=== PATIENT | female | born 1980 | race Caucasian/White ===

== ENCOUNTER 2016-09-06 07:47 | Inpatient (IN) | payer BC ==
[~2016-09-06 07:47] MED LIST: Dexamethasone 4 MG/ML SDV ONE; Lactated Ringers 1,000 ML ONE; Midazolam 1 MG/ML 2 ML SDV ONE; Neostigmine Methylsulfate 1 MG/ML 5 ML Syringe ONE; Ondansetron 4 MG/2 ML SDV ONE; Propofol 200 MG/20 ML SDV ONE; Rocuronium 50 MG/5 ML Vial ONE; Scopolamine 1.5 MG Transdermal Patch ONE; Succinylcholine/Normal Saline 200 MG/10 ML Syringe ONE; fentaNYL 250 MCG/5 ML SDV ONE
[2016-09-06] MEDS ORDERED: Acetaminophen 500 MG Tab PO ONE (08:30)
[2016-09-06] MEDS ORDERED: Scopolamine 1.5 MG Transdermal Patch TRDERM SCH (08:45)
[2016-09-06] MEDS ORDERED: Celecoxib 200 MG Cap PO ONE (08:45)
[2016-09-06] MEDS ORDERED: Gabapentin 300 MG Cap PO ONE (08:45)
[2016-09-06] MEDS ORDERED: cefOXitin 2 GM Vial ONE (08:54)
[2016-09-06] MEDS ORDERED: Dextrose 5%-Lactated Ringers 1,000 ML IV SCH (09:30)
[2016-09-06] MEDS ORDERED: cefOXitin 2 GM in Sodium Chloride 0.9% 50 ML IV ONE (11:00)
[2016-09-06] MEDS ORDERED: [UNRECOGNIZED DRUG - OTHER] NERVRT SCH ×4 (11:00)
[2016-09-06] MEDS ORDERED: DEXAMETHASONE NERVRT SCH ×4 (11:00)
[2016-09-06] MEDS ORDERED: Ketamine 500 MG/5 ML MDV IV SCH (11:00)
[2016-09-06] MEDS ORDERED: ROPIVACAINE NERVRT SCH ×4 (11:00)
[2016-09-06] MEDS ORDERED: EPINEPHRINE NERVRT SCH ×4 (11:00)
[2016-09-06] MEDS ORDERED: Lidocaine 2% 100 MG/5 ML Syringe IVPUSH ONE (11:00)
[2016-09-06] MEDS ORDERED: Rocuronium 50 MG/5 ML Vial ONE (11:57)
[2016-09-06] MEDS ORDERED: Lactated Ringers 1,000 ML ONE (12:03)
--- NOTE | 2016-09-06 14:12 | CR ---
Chest 1V Frontal HISTORY: post line placement COMPARISON: None FINDINGS: Portable chest, 1345 hours There is incomplete inspiration. No acute infiltrate can be identified. Cardiomediastinal silhouette is within normal limits for the AP portable technique. No vascular redistribution or pleural fluid can be seen. Bony structures and soft tissues are unremarkable. Central line has been placed from a left subclavian approach. The tip is satisfactory in the junctio n of the SVC and right atrium. I see no pneumothorax, mediastinal widening, or other complication. IMPRESSION: Satisfactory central line placement. No complication is seen. No other acute chest abnormality ident ified.
[2016-09-06] MEDS ORDERED: hydrOXYzine HCl 50 MG/ML SDV IM PRN (14:47)
[2016-09-06] MEDS ORDERED: SCOPOLAMINE PATCH CHECK TOP SCH (14:47)
[2016-09-06] MEDS ORDERED: SCOPOLAMINE PATCH ASK TOP SCH (14:47)
[2016-09-06] MEDS: HYDROmorphone 1 MG/ML Syringe IVPUSH PRN ×2 (14:49→15:50)
[2016-09-06] MEDS ORDERED: Metoclopramide 10 MG/2 ML SDV IV PRN (14:51)
[2016-09-06] MEDS ORDERED: diphenhydrAMINE 50 MG/ML SDV IV PRN (14:52)
[2016-09-06] MEDS: Acetaminophen Soln 650 MG/20.3 ML UD Cup PO SCH ×2 (15:13→21:17)
[2016-09-06] MEDS: Pantoprazole 40 MG Vial IVPUSH SCH (15:13)
[2016-09-06] MEDS: Gabapentin 250 MG/5 ML Solution ML 470 ML Bottle PO SCH ×2 (15:23→20:36)
[2016-09-06] MEDS: Lidocaine 0.4%/D5W 2 GM/500 ML BAG IV SCH (15:35)
[2016-09-06] MEDS: Labetalol 20 MG/4 ML Syringe IVPUSH PRN ×3 (16:16→18:45)
[2016-09-06] MEDS: MVI, Adult with Vitamin K 10 ML, Thiamine 200 MG, Chromium/Copper/Mang/Selen/Zn 1 ML in... IV SCH ×4 (16:31)
[2016-09-06] MEDS: VERIFY SCOP PATCH TOP SCH (17:22)
[2016-09-06] MEDS: Heparin Sodium 5,000 Units/ML Vial SUBCUT SCH (17:22)
[2016-09-06] MEDS: cefOXitin 2 GM in Sodium Chloride 0.9% 50 ML IV SCH ×2 (17:22→23:58)
[2016-09-06] MEDS ORDERED: Losartan 50 MG Tab PO SCH (21:00)
[2016-09-06] MEDS: Dextrose 5%-Lactated Ringers 1,000 ML IV SCH (22:49)
[2016-09-07] MEDS: HYDROmorphone 1 MG/ML Syringe IVPUSH PRN ×4 (02:13→23:43)
[2016-09-07] MEDS ORDERED: Iohexol 647 MG/ML 50 ML SDV PO STA (03:32)
[2016-09-07] MEDS: Lidocaine 0.4%/D5W 2 GM/500 ML BAG IV SCH (04:19)
[2016-09-07] MEDS: Acetaminophen Soln 650 MG/20.3 ML UD Cup PO SCH ×4 (04:24→21:03)
[2016-09-07] MEDS: cefOXitin 2 GM in Sodium Chloride 0.9% 50 ML IV SCH (05:04)
[2016-09-07] MEDS: Dextrose 5%-Lactated Ringers 1,000 ML IV SCH (05:04)
[2016-09-07] MEDS: Heparin Sodium 5,000 Units/ML Vial SUBCUT SCH ×2 (05:07→17:04)
[2016-09-07] MEDS: VERIFY SCOP PATCH TOP SCH (08:04)
[2016-09-07] MEDS: Celecoxib 200 MG Cap PO SCH (08:08)
[2016-09-07] MEDS: Gabapentin 250 MG/5 ML Solution ML 470 ML Bottle PO SCH ×3 (08:08→21:03)
[2016-09-07] MEDS ORDERED: Losartan 50 MG Tab PO SCH (08:40)
[2016-09-07] MEDS: Metoprolol Tartrate 50 MG Tab PO SCH ×2 (10:28→20:57)
[2016-09-07] MEDS ORDERED: Dextrose 5%-Lactated Ringers 1,000 ML IV SCH (12:00)
[2016-09-07] MEDS: oxyCODONE 5 MG Tab PO PRN ×2 (14:27→19:35)
[2016-09-07] MEDS: MVI, Adult with Vitamin K 10 ML, Thiamine 200 MG, Chromium/Copper/Mang/Selen/Zn 1 ML in... IV SCH ×4 (15:33)
[2016-09-07] MEDS: Pantoprazole 40 MG Vial IVPUSH SCH (15:36)
--- NOTE | 2016-09-07 16:56 | PCM.CONS ---
H&P History of Present Illness - General Date of Service: 09/07/16 Admit Problem/Dx: Admission Diagnosis/Problem Admission Diagnosis/Problem Juvenal-en-Y gastrojejunostomy Source of Information: Patient, Family History Limitations: Reports: No limitations - History of Present Illness Initial Comments - Free Text/Narative: This patient is a 36-year-old woman who I been asked to see by Dr. Hair for further suggestions concerning management of hypertension. She was admitted yesterday by Dr. Hair and underwent Juvenal-en-Y gastric bypass surgery. Since admission has been noted to have significantly elevated systolic and diastolic blood pressures. She's had a previous history of hypertension and is been treated with Cozaar 50 mg by mouth each bedtime. She reports that her pain control has been fairly good and she is otherwise been hemodynamically stable and afebrile. Middle Abdomen Pain Score (Numeric/FACES): 7 - Related Data Allergies/Adverse Reactions: Allergies Allergy/AdvReac Type Severity Reaction Status Date / Time bee venom protein (honey bee) Allergy Severe Swelling Verified 09/06/16 14:54 shrimp Allergy Severe Chest Verified 09/06/16 14:54 Tightness amoxicillin Allergy Rash Verified 09/06/16 09:49 ondansetron Allergy Hives Verified 09/06/16 09:49 [From Zofran (as hydrochloride)] Penicillins Allergy Rash Verified 09/06/16 09:49 trazodone Allergy Lethargy Verified 09/06/16 09:49 prednisone AdvReac Hallucinati Verified 09/06/16 14:55 ons Home Medications: Home Meds Cholecalciferol (Vitamin D3) [Vitamin D3] 2,000 unit PO BID 09/04/16 [History] Cyanocobalamin (Vitamin B12) [Vitamin B12] 100 mcg PO DAILY 09/04/16 [History] Cyanocobalamin/FA/Pyridoxine [B Complex-Folic Acid] 1 each PO DAILY 09/04/16 [ History] DULoxetine [Cymbalta] 30 mg PO BID 09/04/16 [History] Estradiol [Estrace] 0.5 mg PO DAILY 09/04/16 [History] Levothyroxine [Synthroid] 50 mcg PO DAILY 09/04/16 [History] Losartan [Cozaar] 50 mg PO DAILY 09/04/16 [History] Methylphenidate [Ritalin] 20 mg PO BID 09/04/16 [History] Multivitamin with Minerals [Multiple Vitamin] 1 tab PO DAILY 09/04/16 [History] Pramipexole [Mirapex] 0.25 mg PO BID 09/04/16 [History] QUEtiapine [SEROquel] 50 mg PO BEDTIME 09/04/16 [History] Triamcinolone Acetonide [Triamcinolone Acetonide 0.1% Crm] 15 gm TOP BID PRN 10/16 [History] Venlafaxine [Effexor] 37.5 mg PO DAILY 09/04/16 [History] traMADol [Ultram] 50 mg PO Q6H PRN 09/04/16 [History] Past Medical History Cardiovascular History: Reports: Hypertension, Other (see below) Other Cardiovascular History: pericarditis Gastrointestinal History: Reports: Other (see below) Other Gastrointestinal History: biliary dyskinesia Genitourinary History: Reports: Other (see below) Other Genitourinary History: kidney failure at 18 months old [employer] History: Reports: Dysfunctional uterine bleeding, Endometriosis, Musculoskeletal History: Reports: Back pain, chronic, Fracture, Other (see below ) Other Musculoskeletal History: left foot fx Neurological History: Reports: Concussion, Migraines Psychiatric History: Reports: Anxiety, Depression, PTSD Endocrine/Metabolic History: Reports: Hypothyroidism Hematologic History: Reports: Other (see below) Other Hematologic History: d3 def. Dermatologic History: Reports: Psoriasis - Infectious Disease History Infectious Disease History: Reports: Chicken pox - Past Surgical History HEENT Surgical History: Reports: Tonsillectomy Cardiovascular Surgical History: Reports: None GI Surgical History: Reports: Cholecystectomy, EGD Female Surgical History: Reports: Breast biopsy, Hysterectomy Other Female Surgeries/Procedures: left breast Endocrine Surgical History: Reports: None Neurological Surgical History: Reports: None Musculoskeletal Surgical History: Reports: None Dermatological Surgical History: Reports: None Social & Family History - Tobacco Use Smoking Status *Q: Former Smoker Years of Tobacco use: 15 Packs/Tins Daily: 0.5 Used Tobacco, but Quit: Yes Month Tobacco Last Used: jun Second Hand Smoke Exposure: No - Caffeine Use Caffeine Use: Reports: None - Recreational Drug Use Recreational Drug Use: No H&P Review of Systems - Review of Systems: Review Of Systems: See Below General: Reports: no symptoms HEENT: Reports: no symptoms Pulmonary: Reports: No Symptoms Cardiovascular: Reports: no symptoms Gastrointestinal: Reports: Abdominal pain. Denies: Distension, Nausea, Vomiting Musculoskeletal: Reports: no symptoms Exam - Exam Exam: See Below - Vital Signs Vital Signs: Last Vital Signs Temp 98.1 F 09/07/16 13:37 Pulse 62 09/07/16 13:37 Resp 18 09/07/16 13:37 BP 157/85 H 09/07/16 13:37 Pulse Ox 93 L 09/07/16 13:37 Weight: 272 lb 5 oz - Exam General: alert, oriented, cooperative Neck: supple, trachea midline, +2 carotid pulse wo bruit Lungs: Clear to auscultation, Normal respiratory effort Cardiovascular: regular rate, regular rhythm, normal S1, normal S2. No: systolic murmur, diastolic murmur Abdomen: soft, tenderness, hypoactive bowel sounds. No: distention Extremities: 3, normal inspection, 10 Consult PN Assessment/Plan Procedures: Procedures BLOOD TYPING SEROLOGIC ABO (02/15/16) BLOOD TYPING SEROLOGIC RH(D) (02/15/16) RBC ANTIBODY SCREEN (02/15/16) Problem List Initiated/Reviewed/Updated: Yes My Orders last 24 hours: My Active Orders 09/07/16 08:40 Losartan [Cozaar] 100 mg PO BEDTIME 09/07/16 09:00 Metoprolol Tartrate [Lopressor] 50 mg PO BID Plan: ASSESSMENT AND RECOMMENDATIONS STATUS POST JUVENAL-EN-Y GASTRIC BYPASS SURGERY -Postop care as per Dr. Hair UNCONTROLLED HYPERTENSION-previous history, currently treated with Cozaar 50 mg by mouth each bedtime. Blood pressures been consistently elevated since admission. -Increase Cozaar to 100 mg by mouth each bedtime -Metoprolol 50 mg by mouth twice a day -Continue to monitor blood pressure, will followup in the a.m. Requesting Provider: EDDI Date Consult Requested: 09/07/16 Reason for Consult: Management of hypertension Patient History Reviewed: Yes
[2016-09-08] MEDS: Acetaminophen Soln 650 MG/20.3 ML UD Cup PO SCH ×2 (03:31→09:30)
[2016-09-08] MEDS: oxyCODONE 5 MG Tab PO PRN (03:36)
[2016-09-08] MEDS: Heparin Sodium 5,000 Units/ML Vial SUBCUT SCH (05:27)
[2016-09-08 07:25] VITALS: BP 148/83
[2016-09-08] MEDS ORDERED: HYDROmorphone 2 MG Tab PO PRN (07:53)
[2016-09-08] MEDS ORDERED: Gabapentin 300 MG Cap PO SCH (09:00)
[2016-09-08] MEDS ORDERED: Cyanocobalamin (Vitamin B12) 1,000 MCG/ML SDV IM ONE (09:00)
[2016-09-08] MEDS: Metoprolol Tartrate 50 MG Tab PO SCH (09:00)
[2016-09-08] MEDS: Celecoxib 200 MG Cap PO SCH (09:01)
--- NOTE | 2016-09-08 11:15 | PCM.CONSN ---
- General Info Date of Service: 09/08/16 Functional Status: Reports: tolerating diet, ambulating, urinating - Review of Systems General: Reports: Weakness Pulmonary: Reports: no symptoms Cardiovascular: Reports: No Symptoms Gastrointestinal: Reports: Abdominal pain Systems Review Comment:: This patient is a 36-year-old woman who I was asked yesterday by Dr. Hair for recommendations concerning management of hypertension.her dose of Cozaar was increased to 100 mg by mouth each bedtime and she was started on metoprolol 50 mg twice daily. With these interventions blood pressures come under better control but is not yet within the desired range. - Patient Data Vitals - most recent: Last Vital Signs Temp 96.2 F 09/08/16 07:22 Pulse 79 09/08/16 09:00 Resp 12 09/08/16 07:22 BP 148/83 H 09/08/16 09:00 Pulse Ox 95 09/08/16 07:22 Weight - most recent: 272 lb 5 oz I&O - last 24 hours: Intake & Output 09/07/16 09/08/16 09/08/16 22:59 06:59 14:59 Intake Total 7121 844 9172 Output Total 1045 1870 1000 Balance 823 -1650 665 Med Orders - Current: Current Medications Acetaminophen (Tylenol) 650 mg PO Q6H [facility] Last Admin: 09/08/16 09:30 Dose: 650 mg Celecoxib (Celebrex) 200 mg PO DAILY [facility] Last Admin: 09/08/16 09:01 Dose: 200 mg Gabapentin (Neurontin) 300 mg PO TID [facility] Last Admin: 09/08/16 09:07 Dose: 300 mg Heparin Sodium (Porcine) (Heparin Lock Flush 100 Units/Ml Syringe) 500 units FLUSH ASDIRECTED PRN PRN Reason: Other Last Admin: 09/08/16 08:05 Dose: 500 units Heparin Sodium (Porcine) (Heparin Sodium) 5,000 units SUBCUT Q12H [facility] Last Admin: 09/08/16 05:27 Dose: 5,000 units Hydromorphone HCl (Dilaudid) 2 - 4 mg PO Q4H PRN PRN Reason: PAIN Last Admin: 09/08/16 08:06 Dose: 4 mg Hydroxyzine HCl (Vistaril) 75 - 100 mg IM Q4H PRN PRN Reason: PAIN NOT CONTROLLED BY [employer]ONSTR[employer] Last Admin: 09/06/16 14:56 Dose: 100 mg Losartan Potassium (Cozaar) 100 mg PO BEDTIME [facility] Last Admin: 09/07/16 20:56 Dose: 100 mg Metoprolol Tartrate (Lopressor) 50 mg PO BID [facility] Last Admin: 09/08/16 09:00 Dose: 50 mg Discontinued Medications Acetaminophen (Tylenol Extra Strength) 1,000 mg PO ONETIME ONE Stop: 09/06/16 08:31 Last Admin: 09/06/16 08:45 Dose: 1,000 mg Cefoxitin Sodium (Mefoxin) Confirm Administered Dose 2 gm .ROUTE .STK-MED ONE Stop: 09/06/16 08:55 Last Admin: 09/06/16 12:48 Dose: 2 gm Celecoxib (Celebrex) 200 mg PO ONETIME ONE Stop: 09/06/16 08:46 Last Admin: 09/06/16 08:45 Dose: 200 mg Ropivacaine 59.5 ml/Dexamethasone 8 mg/Epinephrine HCl 0.4 mg/ Sodium Chloride 18.1 ml 0 ml NERVRT ASDIRECTED [facility] Last Admin: 09/06/16 11:55 Dose: 80 syringe Cyanocobalamin (Vitamin B12) 1,000 mcg IM ONETIME ONE Stop: 09/08/16 09:01 Last Admin: 09/08/16 09:01 Dose: 1,000 mcg Dexamethasone (Dexamethasone) Confirm Administered Dose 4 mg .ROUTE .STK-MED ONE Stop: 09/06/16 07:40 Diphenhydramine HCl (Benadryl) 25 - 50 mg IV Q4H PRN PRN Reason: ITCHING Fentanyl (Sublimaze) Confirm Administered Dose 500 mcg .ROUTE .STK-MED ONE Stop: 09/06/16 07:40 Gabapentin (Neurontin) 300 mg PO ONETIME ONE Stop: 09/06/16 08:46 Last Admin: 09/06/16 08:45 Dose: 300 mg Gabapentin (Neurontin) 300 mg PO TID [facility] Last Admin: 09/07/16 21:03 Dose: 300 mg Glycopyrrolate () Confirm Administered Dose 1 mg .ROUTE .STK-MED ONE Stop: 09/06/16 07:40 Heparin Sodium (Porcine) (Heparin Lock Flush 100 Units/Ml Syringe) Confirm Administered Dose 1,000 units .ROUTE .STK-MED ONE Stop: 09/06/16 10:11 Hydromorphone HCl (Dilaudid) 1 mg IVPUSH Q1H PRN PRN Reason: Pain Last Admin: 09/07/16 23:43 Dose: 1 mg Dextrose/Lactated Ringer's (Dextrose 5%-Lactated Ringers) 1,000 mls @ 100 mls/ [facility] Last Admin: 09/06/16 09:30 Dose: 100 mls/hr Cefoxitin Sodium 2 gm/ Sodium (Chloride) 50 mls @ 100 mls/hr IV ONETIME ONE Stop: 09/06/16 11:29 Last Admin: 09/06/16 11:45 Dose: 100 mls/hr Lidocaine HCl/Dextrose (Lidocaine 2 Gm/D5w 500 Ml) 2 gm in 500 mls @ 30 mls/hr IV .[id number] [facility] PRN Reason: 2 MG/MIN Stop: 09/07/16 14:00 Last Admin: 09/07/16 04:19 Dose: 2 mg/min, 30 mls/hr Ketamine HCl 100 mg/ Sodium (Chloride) 100 mls @ 18 [facility] Lactated Ringer's (Ringers, Lactated) Confirm Administered Dose 1,000 mls @ as directed .ROUTE .STK-MED ONE Stop: 09/06/16 07:40 Lactated Ringer's (Ringers, Lactated) Confirm Administered Dose 1,000 mls @ as directed .ROUTE .STK-MED ONE Stop: 09/06/16 12:04 Dextrose/Lactated Ringer's (Dextrose 5%-Lactated Ringers) 1,000 mls @ 175 [facility]ls/ [facility] Stop: 09/07/16 11:59 Last Admin: 09/07/16 05:04 Dose: 175 mls/hr Multivitamins/Minerals 10 ml/Thiamine HCl 200 mg/ Chromium/Copper/Manganese/ Seleni/Zn 1 ml/ Dextrose/Lactated Ringer's 1,013 mls @ 100 mls/hr IV DAILY@ 1600 DANICA Last Admin: 09/07/16 15:33 Dose: 100 mls/hr Cefoxitin Sodium 2 gm/ Sodium (Chloride) 50 mls @ 100 mls/hr IV Q6H [facility] Stop: 09/07/16 06:29 Last Admin: 09/07/16 05:04 Dose: 100 mls/hr Dextrose/Lactated Ringer's (Dextrose 5%-Lactated Ringers) 1,000 mls @ 100 mls/ hr IV ASDIRECTED [facility] Last Admin: 09/08/16 01:40 Dose: 100 mls/hr Iohexol (Omnipaque-300) 50 ml PO . DIRECTED STA Stop: 09/07/16 03:33 Last Admin: 09/07/16 03:52 Dose: 50 ml Ketamine HCl (Ketalar) 30 mg IV ASDIRECTED [facility] Labetalol HCl (Normodyne) 5 - 15 mg IVPUSH Q1H PRN PRN Reason: SBP over 160 OR DBP over 95 Last Admin: 09/06/16 18:45 Dose: 15 mg Lidocaine HCl (Xylocaine 2%) 128 mg IVPUSH ONETIME ONE Stop: 09/06/16 11:01 Last Admin: 09/06/16 16:01 Dose: Not Given Losartan Potassium (Cozaar) 50 mg PO BEDTIME [facility] Last Admin: 09/06/16 20:36 Dose: 50 mg Metoclopramide HCl (Reglan) 10 mg IV Q6H PRN PRN Reason: N/V Midazolam HCl (Versed 1 Mg/Ml) Confirm Administered Dose 2 mg .ROUTE .STK-MED ONE Stop: 09/06/16 07:40 Neostigmine Methylsulfate (Neostigmine) Confirm Administered Dose 5 mg .ROUTE .STK-MED ONE Stop: 09/06/16 07:40 Scopolamine Patch (Check) 1 each TOP DAILY [facility] Last Admin: 09/07/16 10:29 Dose: Not Given Verify Scop Patch 0 each TOP DAILY [facility] Last Admin: 09/07/16 08:04 Dose: Not Given Ondansetron HCl (Zofran) Confirm Administered Dose 4 mg .ROUTE .STK-MED ONE Stop: 09/06/16 07:40 Oxycodone HCl (Oxycodone) 5 - 10 mg PO Q4H PRN PRN Reason: Pain Last Admin: 09/08/16 03:36 Dose: 10 mg Pantoprazole Sodium (Protonix Iv) 40 mg IVPUSH Q24H [facility] Last Admin: 09/07/16 15:36 Dose: 40 mg Propofol (Diprivan 20 Ml) Confirm Administered Dose 200 mg .ROUTE .STK-MED ONE Stop: 09/06/16 07:40 Rocuronium Gaastra (Zemuron) Confirm Administered Dose 100 mg .ROUTE .STK-MED ONE Stop: 09/06/16 07:40 Rocuronium Gaastra (Zemuron) Confirm Administered Dose 50 mg .ROUTE .STK-MED ONE Stop: 09/06/16 11:58 Scopolamine (Transderm-Scop) 1.5 mg TRDERM Q72H [facility] Stop: 09/09/16 03:00 Last Admin: 09/06/16 08:45 Dose: 1.5 mg Scopolamine (Transderm-Scop) Confirm Administered Dose 1.5 mg .ROUTE .STK-MED ONE Stop: 09/06/16 07:40 Scopolamine (Transderm-Scop) 1.5 mg TOP ASDIRECTED [facility] Stop: 09/09/16 16:00 Sodium Chloride (Normal Saline) 500 ml IRR .STK-MED ONE Stop: 09/06/16 12:50 Last Admin: 09/06/16 12:49 Dose: 500 ml Succinylcholine Chloride (Succinylcholine In Ns Pf) Confirm Administered Dose 200 mg .ROUTE .STK-MED ONE Stop: 09/06/16 07:40 - Exam Lungs: Clear to auscultation, Normal respiratory effort Cardiovascular: Regular Rate, Regular Rhythm, No Murmurs Consult PN Assessment/Plan Procedures: Procedures BLOOD TYPING SEROLOGIC ABO (02/15/16) BLOOD TYPING SEROLOGIC RH(D) (02/15/16) RBC ANTIBODY SCREEN (02/15/16) Problem List Initiated/Reviewed/Updated: Yes Plan: ASSESSMENT AND RECOMMENDATIONS STATUS POST TOMMY-EN-Y GASTRIC BYPASS SURGERY -Postop care as per Dr. Hair UNCONTROLLED HYPERTENSION-blood pressure improved with changes in medication, not yet within the desired range. -Increase Cozaar to 100 mg by mouth each bedtime -Metoprolol 50 mg by mouth twice a day -schedule followup appointment with primary care provider for further fine- tuning of blood pressure control.
--- NOTE | 2016-09-09 08:05 | PN ---
DATE OF SERVICE: 09/07/2016 The patient has been afebrile. She has been quite hypertensive. We will get a consultation with Dr. Royal today regarding the hypertension. The patient is normally on Cozaar, and it was started last night. I suspect she will need some additional antihypertensive agent. Otherwise, she is doing well with only requiring one dose of Dilaudid postoperatively. She is up and moving well, and upper GI looks good. Oral intake overnight was around 350 mL. We will order a step-2 diet today and otherwise maximize activity and work with pulmonary toilet. Rob Hair MD /[id number]
--- NOTE | 2016-09-09 10:01 | CR ---
UGI wo KUB HISTORY: Post RNY GBP. FINDINGS: After administration of oral contrast, upright views were obtained. Post operative changes gastric bypass. Surgical drains in place. No evidence for leak. Contrast passes freely into proxima l small bowel loops. IMPRESSION: No evidence for leak or obstruction.
--- NOTE | 2016-09-09 15:37 | OR ---
DATE OF PROCEDURE: 09/06/2016 PREOPERATIVE DIAGNOSES: 1. Morbid obesity. 2. Limited peripheral venous access. POSTOPERATIVE DIAGNOSES: 1. Limited peripheral venous access. 2. Morbid obesity. 3. Marked hepatomegaly. 4. Paraesophageal diaphragmatic hernia. OPERATIVE PROCEDURES: 1. Insertion of left subclavian vein triple-lumen catheter (27527). 2. Diagnostic laparoscopy with:. a. Laparoscopic Juvenal-en-Y gastric bypass along long limb gastroenterostomy (43463). b. Glen-Cut needle liver biopsy (95723). 3. Repair of paraesophageal diaphragmatic hernia (81986). ANESTHESIA: General. MEDICAL STAFF SERVICES MANAGER: Nina Juan PA-C. INDICATIONS FOR PROCEDURE: This is a 36-year-old presenting with longstanding morbid obesity and increasingly significant comorbidities. After preoperative evaluation and discussion, she wished to proceed with a gastric bypass procedure. Potential risks of the procedure including bleeding, infection, leaks from various GI tract closures, problems with bowel obstruction over time as well as possibility of cardiopulmonary, septic, or hemorrhagic complications leading to were all discussed, and the patient wishes to proceed. Additionally, the patient noted to have very limited peripheral venous access and after discussion with the patient as well as Anesthesia staff the decision was made to place a central line for maintenance of IV access in the preoperative period. Potential risks of that including bleeding, pneumohemothorax, injury to vasculature were likewise reviewed, and the patient wishes to proceed. DETAILS OF PROCEDURE: The patient was taken to the operating room and after general endotracheal anesthesia was induced was placed in a lithotomy position. Zaldivar catheter along the gastrostomy balloon catheter were placed. At this point, bilateral subcostal transverse abdominis plane blocks were placed and at that point the abdomen was then prepped and draped. At 15 cm inferior, 5 cm left of xiphoid process, transverse incision was made and the peritoneal cavity entered under direct vision with an Optiview trocar and inflated to 15 mmHg pressure with CO2. Laparoscope was then reinserted. No underlying trocar insertion site injuries were seen. Following this, 5 additional trocars were placed across the upper mid abdomen and general exploration was undertaken. The patient was noted to have marked hepatomegaly with liver volume being roughly 2 to 3 times normal liver, grossly fatty infiltrated. Glen-Cut needle biopsies were obtained from left lobe of the liver. Minimal bleeding from the biopsy sites was controlled with electrocautery. At this point, the omentum was divided in the midline up to level of the transverse colon. This allowed identification of the small bowel to the ligament of Treitz. Small bowel was then traced out 200 cm distal to that point, was divided transversely with a DEAN stapler. Small bowel was then traced out additional 150 cm where the [id number] enteroenterostomy was accomplished with an internal firing of the Endo-DEAN 60 mm stapler, common opening was then closed transversely with same stapler. The angles of anastomosis and mesenteric defect were approximated with some 0 Ethibond sutures reinforced with fibrin sealant. Juvenal limb was then mobilized anteriorly over the colon and stomach up to the level of the gastroesophageal junction without tension. The liver was then retracted anteriorly. The patient was noted to have a fairly large paraesophageal diaphragmatic hernia. This included prolapse of portion of gastric fundus, perigastric fat, and omentum into the plane anterior to the course of the esophagus. The diaphragmatic hernia was reduced with peritoneum overlying it, incised and reflected downward. An anterior repair of the diaphragmatic hernia was accomplished with some 0 Ethibond sutures reinforced with PTFE pledgets. At this point, the gastrointestinal catheter was inflated to 15 mL and pulled up snugly against EG junction, gastric wall over the apex balloon was then marked with electrocautery, and balloon catheter deflated and pulled up from the esophagus. The rest of the omental tissue adjacent to the gastric cardia was incised allowing dissection of the stomach at that level. Pouch formation was then initiated with a transverse firing of the gastric pouch to the level was cauterized by the gastric pouch. Pouch was then completed with some additional firings of DEAN michele up to and through the angle of His. Upon completion of the pouch, both staple lines were noted to be intact. The anvil of a 25 mm EEA stapler was attached to a [place] sump type tube, that was brought down through the mouth and taken out through a small opening in the gastric pouch, allowing the anvil likewise to be placed within the gastric pouch. The end of the Juvenal limb was then opened and main body of the EEA stapler passed several cm into the Juvenal limb, brought up the anvil and united with it, thus creating the gastrojejunostomy. On removal of stapler, the donuts of the mucosa were noted within the small bowel was closed off with a vascular staple line. Gastrojejunostomy was reinforced with some 3-0 Vicryl seromuscular stitch along with fibrin sealant. Leak test was accomplished with injection of 120 mL of air in the gastric pouch while submerged with cefoxitin-containing saline solution. No leaks were identified. One Rob-Jones drain was placed adjacent to the gastrojejunostomy and taken out at the left subcostal trocar site. There were no further problems. At this point, the trocars were removed and peritoneal cavity deflated. The incision closed with some 4-0 Vicryl skin stitch. Prior to initiation of gastric bypass due to the patient's limited peripheral venous access, left subclavian vein triple-lumen catheter was placed at the upper chest and neck areas were prepped and draped. The left subclavian vein was cannulated, guidewire passed over the guidewire, a triple-lumen catheter positioned. Good in and outflow was confirmed and both ports were flushed with heparinized saline. Catheter was sutured to skin with some 3-0 silk stitch. Dressing applied. At the conclusion of the procedure a chest x-ray was obtained which showed good catheter positioning without complications. Physician pharmacy sales assistant, Nina Juan, played an essential role in assisting in this case, helping to position the patient, retract structures as needed, as well as suturing and cutting sutures when indicated. Her presence improved patient's safety and decreased operative time. Rob Hair MD /[id number]
--- NOTE | 2016-09-10 08:52 | DISCH ---
FINAL DIAGNOSES: 1. Morbid obesity. 2. Marked hepatomegaly. 3. Paraesophageal diaphragmatic hernia. 4. Limited peripheral venous access. 5. Treated hypoparathyroidism. 6. Anxiety and dysthymia. 7. History of hypertension. 8. Status post DEONTE-BSO with surgical menopause. OPERATIVE PROCEDURE: This was done on 09/06/2016, laparoscopic Juvenal-en-Y gastric bypass with long limb gastroenterostomy with liver biopsy, repair of paraesophageal diaphragmatic hernia and insertion of left subclavian vein triple-lumen catheter. HOSPITAL COURSE: This is a 36-year-old female presenting with longstanding morbid obesity and increasingly significant comorbidities. After preoperative evaluation and discussion, she wished to proceed with gastric bypass. This was done on the date of procedure, along with liver biopsy and repair of a concurrent diaphragmatic hernia. The patient had very limited peripheral venous access, so a central line was placed after induction of the anesthetic and will be removed at the time of discharge. Postoperatively, the patient has required some narcotics, in addition to the Celebrex, gabapentin, and Tylenol schedule, and will be discharged with Tylenol 650 mg p.o. q.6 hours x5 days, then p.r.n., and Celebrex 200 mg daily x14 days, and Dilaudid 2 to 4 mg p.o. q.4 hours p.r.n. pain, #40. Additionally, the patient was noted to be quite hypertensive persistently perioperatively. Internal Medicine consultation was obtained and her Cozaar dose was increased from 50 to 100 mg a day and then metoprolol 50 mg p.o. b.i.d. was also started. Otherwise, she will be continuing her usual at-home medications with instructions to split most of these as directed and being given. Follow up will be with CHILO Lopez, [facility] on 09/16/2016 at 11:00 a.m.
== END 2016-09-08 11:45 | disposition home or self-care (01) | DRG 403 ==
LOC: JP.SDS 08:17 → JP.MS 08:17 → EDSTATUS 10:15 → JP.2SS 14:20
PROVIDERS: ADMIT Surgery; ATTEND Surgery
PROC: 0BQR4ZZ (ICD-10-PCS; principal; 2016-09-06)
PROC: 02HV33Z Insertion of Infusion Device into Superior Vena Cava, Percutaneous Approach (ICD-10-PCS; principal; 2016-09-06)
PROC: 0FB24ZX Excision of Left Lobe Liver, Percutaneous Endoscopic Approach, Diagnostic (ICD-10-PCS; principal; 2016-09-06)
PROC: 0D164ZA Bypass Stomach to Jejunum, Percutaneous Endoscopic Approach (ICD-10-PCS; principal; 2016-09-06)
PROC: 0BQS4ZZ (ICD-10-PCS; principal; 2016-09-06)
DX: E66.01 Morbid (severe) obesity due to excess calories (principal); Z68.41 Body mass index [BMI] 40.0-44.9, adult; R16.0 Hepatomegaly, not elsewhere classified; K44.9 Diaphragmatic hernia without obstruction or gangrene; I10 Essential (primary) hypertension; E03.9 Hypothyroidism, unspecified; F42.9 Obsessive-compulsive disorder, unspecified; F41.9 Anxiety disorder, unspecified; M54.9 Dorsalgia, unspecified; G89.29 Other chronic pain; Z87.891 Personal history of nicotine dependence; Z91.030 Bee allergy status; Z91.040 Latex allergy status; Z91.018 Allergy to other foods; Z88.0 Allergy status to penicillin; Z91.013 Allergy to seafood; Z88.8 Allergy status to other drugs, medicaments and biological substances
CPT/HCPCS: 36415; 71010; 71010-26; 74240; 74240-26; 82962; 86850; 86900; 86901; 88307; 88313; A9270-GY; C9113; J0171; J0694; J1100; J1170; J1642; J1644; J2001; J2250; J2405; J2704; J2795; J3010; J3410; J3411; J3420; J7030; J7040; J7042; J7050; J7120; Q9967

== ENCOUNTER 2016-09-11 18:05 | Inpatient (IN) | payer BC ==
[2016-09-11] MEDS ORDERED: Ondansetron 4 MG/2 ML SDV IVPUSH ONE (20:15)
[2016-09-11] MEDS ORDERED: Sodium Chloride 0.9% 1,000 ML IV SCH (20:15)
[2016-09-11] MEDS ORDERED: HYDROmorphone 1 MG/ML Syringe IVPUSH ONE ×3 (20:16→23:22)
[2016-09-11] MEDS ORDERED: Sodium Chloride 0.9% 10 ML Syringe FLUSH PRN (21:46)
[2016-09-11] MEDS ORDERED: Iopamidol 612 MG/ML 150 ML Bottle IV SCH (22:00)
--- NOTE | 2016-09-11 23:41 | EDM.PDOC ---
ED HPI GI/ABDOMINAL - General Chief Complaint: Abdominal Pain Stated Complaint: STOMACH PAIN/VOMITING Time Seen by Provider: 09/11/16 18:10 Source: Reports: Patient History Limitations: Reports: No limitations - History of Present Illness INITIAL COMMENTS - FREE TEXT/NARRATIVE: History of present illness: [36-year-old female who underwent Juvenal-en-Y gastric bypass last Friday presenting now with 24-hour history of epigastric abdominal pain nausea and vomiting. No fever. No other complaints] Review of systems: As per history of present illness and below otherwise all systems reviewed and negative. Past medical history: As per history of present illness and as reviewed below otherwise noncontributory. Surgical history: As per history of present illness and as reviewed below otherwise noncontributory. Social history: No reported history of drug or alcohol abuse. Family history: As per history of present illness and as reviewed below otherwise noncontributory. Physical exam: HEENT: Atraumatic, normocephalic, pupils reactive, negative for conjunctival pallor or scleral icterus, mucous membranes moist, throat clear, neck supple, nontender, trachea midline. Lungs: Clear to auscultation Heart: S1S2, regular Abdomen: She has tenderness to palpation in the epigastric area and there is some distention present Extremities: Atraumatic, negative for cords or calf pain. Neurovascular unremarkable. Neuro: Awake, alert, oriented.Exam nonfocal. Diagnostics: [CBC complete metabolic panel were obtained along with abdominal pelvic CT the CT is demonstrating evidence for small bowel obstruction of the Juvenal-en-Y loop] Therapeutics: [] Impression: [Small bowel obstruction of the Juvenal-en-Y loop] Plan: [I spoke with Dr. Peter Hair and the patient will be admitted. She will be provided with IV fluids and a AMBULANCE MECHANIC pump and he will assess her in the morning.] Definitive disposition and diagnosis as appropriate pending reevaluation and review of above. - Related Data Allergies/ADRs: Allergies Allergy/AdvReac Type Severity Reaction Status Date / Time bee venom protein (honey bee) Allergy Severe Swelling Verified 09/11/16 19:50 shrimp Allergy Severe Chest Verified 09/11/16 19:50 Tightness amoxicillin Allergy Rash Verified 09/11/16 19:50 ondansetron Allergy Hives Verified 09/11/16 19:50 [From Zofran (as hydrochloride)] Penicillins Allergy Rash Verified 09/11/16 19:50 trazodone Allergy Lethargy Verified 09/11/16 19:50 prednisone AdvReac Hallucinati Verified 09/11/16 19:50 ons Home Meds: Home Meds Cholecalciferol (Vitamin D3) [Vitamin D3] 2,000 unit PO BID 09/04/16 [History] Cyanocobalamin (Vitamin B12) [Vitamin B12] 100 mcg PO DAILY 09/04/16 [History] Cyanocobalamin/FA/Pyridoxine [B Complex-Folic Acid] 1 each PO DAILY 09/04/16 [ History] DULoxetine [Cymbalta] 30 mg PO BID 09/04/16 [History] Estradiol [Estrace] 0.5 mg PO DAILY 09/04/16 [History] Levothyroxine [Synthroid] 50 mcg PO DAILY 09/04/16 [History] Methylphenidate [Ritalin] 20 mg PO BID 09/04/16 [History] Multivitamin with Minerals [Multiple Vitamin] 1 tab PO DAILY 09/04/16 [History] Pramipexole [Mirapex] 0.25 mg PO BID 09/04/16 [History] QUEtiapine [SEROquel] 50 mg PO BEDTIME 09/04/16 [History] Triamcinolone Acetonide [Triamcinolone Acetonide 0.1% Crm] 15 gm TOP BID PRN 10/16 [History] Venlafaxine [Effexor] 37.5 mg PO DAILY 09/04/16 [History] traMADol [Ultram] 50 mg PO Q6H PRN 09/04/16 [History] Losartan [Cozaar] 100 mg PO DAILY #30 tablet 09/08/16 [Rx] Metoprolol Tartrate [Lopressor] 50 mg PO BID #60 tablet 09/08/16 [Rx] Past Medical History Cardiovascular History: Reports: Hypertension, Other (see below) Other Cardiovascular History: pericarditis Gastrointestinal History: Reports: Other (see below) Other Gastrointestinal History: biliary dyskinesia Genitourinary History: Reports: Other (see below) Other Genitourinary History: kidney failure at 18 months old 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 Dermatologic History: Reports: Psoriasis - Infectious Disease History Infectious Disease History: Reports: C-difficile - Past Surgical History HEENT Surgical History: Reports: Tonsillectomy Cardiovascular Surgical History: Reports: None GI Surgical History: Reports: Bariatric procedure, Cholecystectomy, EGD Female Surgical History: Reports: Breast biopsy, Hysterectomy Other Female Surgeries/Procedures: left breast Endocrine Surgical History: Reports: None Neurological Surgical History: Reports: None Musculoskeletal Surgical History: Reports: None Dermatological Surgical History: Reports: None Social & Family History - Tobacco Use Smoking Status *Q: Never Smoker Years of Tobacco use: 15 Packs/Tins Daily: 0.5 Used Tobacco, but Quit: Yes Month Tobacco Last Used: jun Second Hand Smoke Exposure: No - Caffeine Use Caffeine Use: Reports: None - Recreational Drug Use Recreational Drug Use: No ED ROS GENERAL - Review of Systems Review Of Systems: ROS reveals no pertinent complaints other than HPI. ED EXAM, GI/ABD - Physical Exam Exam: See Below Course - Vital Signs Last Recorded V/S: Last Vital Signs Temp 37.7 C 09/11/16 19:49 Pulse 89 09/11/16 19:49 Resp 20 09/11/16 19:49 BP 157/38 H 09/11/16 19:49 Pulse Ox 100 09/11/16 19:49 - Orders/Labs/Meds Orders: Active Orders 24 hr Category Date Time Status Abdomen Pelvis w Cont [CT] Stat Exams 09/11/16 21:36 Taken Iopamidol [Isovue-300 (61%)] Med 09/11/16 22:00 Active 150 ml IV . DIRECTED Sodium Chloride 0.9% [Normal Saline] 1,000 ml Med 09/11/16 20:15 Active IV ASDIRECTED Sodium Chloride 0.9% [Saline Flush] Med 09/11/16 21:46 Active 10 ml FLUSH ONETIME PRN Medication Orders Sodium Chloride (Normal Saline) 1,000 mls @ 250 mls/hr IV ASDIRECTED DANICA Last Admin: 09/11/16 20:28 Dose: 250 mls/hr Iopamidol (Isovue-300 (61%)) 150 ml IV . DIRECTED DANICA Last Admin: 09/11/16 22:22 Dose: 150 ml Sodium Chloride (Saline Flush) 10 ml FLUSH ONETIME PRN PRN Reason: PER RADIOLOGY PROTOCOL Last Admin: 09/11/16 22:22 Dose: 10 ml Labs: Laboratory Tests 09/11/16 09/11/16 Range/Units 20:14 20:14 WBC 11.0 (4.5-11.0) K/uL RBC 5.02 (3.30-5.50) M/uL Hgb 15.0 (12.0-15.0) g/dL Hct 42.5 (36.0-48.0) % MCV 85 (80-98) fL MCH 30 (27-31) pg MCHC 35 (32-36) % Plt Count 286 (150-400) K/uL Neut % (Auto) 77 H (36-66) % Lymph % (Auto) 11 L (24-44) % Rutherford % (Auto) 7 H (2-6) % Eos % (Auto) 5 H (2-4) % Baso % (Auto) 0 (0-1) % Sodium 144 (140-148) mmol/L Potassium 3.8 (3.6-5.2) mmol/L Chloride 105 (100-108) mmol/L Carbon Dioxide 23 (21-32) mmol/L Anion Gap 15.6 H (5.0-14.0) mmol/L BUN 15 (7-18) mg/dL Creatinine 0.8 (0.6-1.0) mg/dL Est Cr Clr Drug Dosing 94.54 mL/min Estimated GFR (MDRD) > 60 (>60) Glucose 104 (74-106) mg/dL Calcium 9.2 (8.5-10.1) mg/dL Total Bilirubin 0.6 (0.2-1.0) mg/dL AST 20 (15-37) U/L ALT 38 (12-78) U/L Alkaline Phosphatase 69 (46-116) U/L Total Protein 7.6 (6.4-8.2) g/dL Albumin 3.8 (3.4-5.0) g/dL Globulin 3.8 H (2.3-3.5) g/dL Albumin/Globulin Ratio 1.0 L (1.2-2.2) Meds: Medications Generic Name Dose Route Start Last Admin Trade Name Freq PRN Reason Stop Dose Admin Sodium Chloride 1,000 mls @ 250 mls/hr 09/11/16 20:15 09/11/16 20:28 Normal Saline IV 250 mls/hr ASDIRECTED DANICA Administration Iopamidol 150 ml 09/11/16 22:00 09/11/16 22:22 Isovue-300 (61%) IV 150 ml . DIRECTED DANICA Administration Sodium Chloride 10 ml 09/11/16 21:46 09/11/16 22:22 Saline Flush FLUSH 10 ml ONETIME PRN Administration PER RADIOLOGY PROTOCOL Discontinued Medications Generic Name Dose Route Start Last Admin Trade Name Freq PRN Reason Stop Dose Admin Hydromorphone HCl 1 mg 09/11/16 20:16 09/11/16 20:30 Dilaudid IVPUSH 09/11/16 20:17 1 mg ONETIME ONE Administration Hydromorphone HCl 0.5 mg 09/11/16 21:05 09/11/16 21:12 Dilaudid IVPUSH 09/11/16 21:06 0.5 mg ONETIME ONE Administration Hydromorphone HCl 1 mg 09/11/16 23:22 09/11/16 23:29 Dilaudid IVPUSH 09/11/16 23:23 1 mg ONETIME ONE Administration Sodium Chloride 85 mls @ 3 mls/sec 09/11/16 21:46 09/11/16 22:22 Normal Saline IV 09/11/16 21:47 3 mls/sec ONETIME ONE Administration Ondansetron HCl 4 mg 09/11/16 20:15 09/11/16 20:30 Zofran IVPUSH 09/11/16 20:16 Not Given ONETIME ONE Departure - Departure Time of Disposition: 23:40 Disposition: Home, Self-Care 01 Condition: good Clinical Impression: Small bowel obstruction, History of Juvenal-en-Y gastric bypass Forms: ED Department Discharge - My Orders Last 24 Hours: My Active Orders 09/11/16 20:15 Sodium Chloride 0.9% [Normal Saline] 1,000 ml IV ASDIRECTED 09/11/16 21:36 Abdomen Pelvis w Cont [CT] Stat 09/11/16 21:46 Sodium Chloride 0.9% [Saline Flush] 10 ml FLUSH ONETIME PRN 09/11/16 22:00 Iopamidol [Isovue-300 (61%)] 150 ml IV . DIRECTED - Assessment/Plan Last 24 Hours: My Active Orders 09/11/16 20:15 Sodium Chloride 0.9% [Normal Saline] 1,000 ml IV ASDIRECTED 09/11/16 21:36 Abdomen Pelvis w Cont [CT] Stat 09/11/16 21:46 Sodium Chloride 0.9% [Saline Flush] 10 ml FLUSH ONETIME PRN 09/11/16 22:00 Iopamidol [Isovue-300 (61%)] 150 ml IV . DIRECTED
[2016-09-12] MEDS ORDERED: Ondansetron 4 MG/2 ML SDV IVPUSH PRN (00:56)
[2016-09-12] MEDS ORDERED: Dextrose 5%-Lactated Ringers 1,000 ML IV SCH (01:00)
[2016-09-12] MEDS ORDERED: HYDROmorphone/Normal Saline 15 MG/30 ML PCA IV SCH (01:15)
[2016-09-12] MEDS ORDERED: HYDROmorphone/Normal Saline 15 MG/30 ML PCA IV PRN (07:33)
[2016-09-12] MEDS ORDERED: Naloxone 0.4 MG/ML SDV IV PRN (07:34)
[2016-09-12] MEDS ORDERED: Iohexol 647 MG/ML 50 ML SDV IVPUSH PRN (08:19)
[2016-09-12] MEDS ORDERED: Triamcinolone Acetonide 0.1% Crm 15 GM Tube TOP SCH (09:00)
[2016-09-12] MEDS ORDERED: Pantoprazole 40 MG Vial IV SCH (09:00)
--- NOTE | 2016-09-12 09:51 | CR ---
UGI wo KUB HISTORY: evaluate if fluid is getting through the JJ FINDINGS: After administration of oral contrast, upright views were obtained, as well as dynamic dale ging and spot fluoroscopic spot images. Post operative changes gastric bypass. No evidence for leak . Contrast passes freely through the distal anastomosis into normal caliber small bowel loops. IMPRESSION: No evidence for leak or obstruction.
[2016-09-12] MEDS ORDERED: MVI, Adult with Vitamin K 10 ML, Thiamine 200 MG, Chromium/Copper/Mang/Selen/Zn 1 ML in... IV ONE ×4 (13:00)
[2016-09-12 13:24] VITALS: BP 153/87
--- NOTE | 2016-09-23 12:58 | DISCH ---
FINAL DIAGNOSIS: Epigastric pain and nausea, status post Juvenal-en-Y gastric bypass. OPERATIVE PROCEDURES: None. HOSPITAL COURSE: This is a 36-year-old status post Juvenal-en-Y gastric bypass 6 days ago presenting with some epigastric pain and nausea. The CT scan was obtained, which was suggestive of an obstruction at the Juvenal limb. The patient was admitted and had no further problems with significant nausea. On my read of the CT scan, this is probably a physiologic distention of the Juvenal limb with probably some edema, but not obstruction at the jejunojejunostomy. The patient had an upper GI x-ray of water-soluble contrast, which showed no evidence of obstruction. She was then started on a step-2 gastric bypass diet and tolerated that well and was discharged home later the same day. She will continue with the present home medications as previously and follow up will be with Nina Juan next week.
== END 2016-09-12 15:31 | disposition home or self-care (01) | DRG 254 ==
LOC: JP.ED 18:05 → JP.ICU 09-12 00:50
PROVIDERS: ADMIT Surgery; ATTEND Surgery
DX: K63.89 Other specified diseases of intestine (principal); I10 Essential (primary) hypertension; Z98.84 Bariatric surgery status; Z98.0 Intestinal bypass and anastomosis status; E55.9 Vitamin D deficiency, unspecified; M54.9 Dorsalgia, unspecified; G89.29 Other chronic pain; E03.9 Hypothyroidism, unspecified; F41.9 Anxiety disorder, unspecified; F32.9 Major depressive disorder, single episode, unspecified; F43.10 Post-traumatic stress disorder, unspecified; Z87.891 Personal history of nicotine dependence; Z88.1 Allergy status to other antibiotic agents; Z91.030 Bee allergy status; Z88.0 Allergy status to penicillin; Z91.013 Allergy to seafood; Z88.8 Allergy status to other drugs, medicaments and biological substances; R10.13 Epigastric pain
CPT/HCPCS: 36415; 74177; 74240; 74240-26; 80053; 85025; 96361; 96374; 96376; 99284-25; A9270-GY; C9113; J1170; J3411; J7030; J7040; J7042; J7050; J7120; Q9967

== ENCOUNTER 2017-06-10 12:31 | Day surgery (SDC) | payer BC ==
[2017-06-10] MEDS ORDERED: Lactated Ringers 1,000 ML IV ONE (12:35)
[2017-06-10] MEDS ORDERED: Cyanocobalamin (Vitamin B12) 1,000 MCG/ML SDV IM ONE (13:00)
[2017-06-10] MEDS ORDERED: Glycopyrrolate 0.2 MG/ML 2 ML SDV IVPUSH ONE (13:15)
[2017-06-10] MEDS ORDERED: MVI, Adult with Vitamin K 10 ML, Thiamine 200 MG, Chromium/Copper/Mang/Selen/Zn 1 ML in... IV ONE ×4 (13:30)
[2017-06-10] MEDS ORDERED: Propofol 200 MG/20 ML SDV ONE (14:13)
[2017-06-10] MEDS ORDERED: fentaNYL 100 MCG/2 ML SDV ONE (14:13)
[2017-06-10] MEDS ORDERED: Midazolam 1 MG/ML 2 ML SDV ONE (14:13)
[2017-06-10 15:56] VITALS: BP 152/94
--- NOTE | 2017-06-14 15:25 | OR ---
DATE OF PROCEDURE: 06/10/2017 PREOPERATIVE DIAGNOSIS: Dysphasia referable to gastrojejunostomy. POSTOPERATIVE DIAGNOSIS: Normal upper GI endoscopic examination status post Juvenal-en-Y gastric bypass. OPERATIVE PROCEDURES: Upper GI endoscopy with biopsy of gastric pouch for CLOtest. ANESTHESIA: IV sedation. INDICATION FOR PROCEDURE: This is a 36-year-old status post Juvenal-en-Y gastric bypass this past August. She presents now with dysphagia referable to the distal esophagus or gastrojejunostomy and is to undergo an upper GI endoscopy with biopsies and/or dilation as indicated. Potential risks including bleeding and perforation were discussed, and the patient wishes to proceed. DETAILS OF PROCEDURE: The patient was taken to the operating room and was placed in a left lateral decubitus position. IV sedation was administered, after which the upper GI endoscope was passed orally through the length of the esophagus, through the esophagoscopic junction into the gastric pouch, and from there through the gastrojejunostomy and roughly 20 cm into the Juvenal limb. Overall, the examination was entirely normal. There were no areas of inflammation or ulceration, and no areas of stricturing. Biopsies were then obtained from the gastric pouch and sent for CLOtest for H. pylori. Minimal bleeding from the biopsy site was seen. The procedure then concluded. The patient may be experiencing some esophageal spasm and will begin a course of Levsin 0.125 mg p.o. q.i.d. We will have her see Nina Juan PA-C back in one month for recheck. Rob Hair MD /[id number]
== END 2017-06-10 16:50 | disposition home or self-care (01) ==
LOC: JP.SDS 12:31
PROVIDERS: ATTEND Surgery
DX: R13.10 Dysphagia, unspecified (principal); F32.9 Major depressive disorder, single episode, unspecified; E66.9 Obesity, unspecified; K21.9 Gastro-esophageal reflux disease without esophagitis; Z98.84 Bariatric surgery status; Z88.0 Allergy status to penicillin; Z88.1 Allergy status to other antibiotic agents; Z88.8 Allergy status to other drugs, medicaments and biological substances; Z91.030 Bee allergy status; Z91.013 Allergy to seafood; Z91.09 Other allergy status, other than to drugs and biological substances; Z87.891 Personal history of nicotine dependence; Z79.899 Other long term (current) drug therapy
CPT/HCPCS: 43239; 87081; J2250; J2704; J3010; J3411; J3420; J7120; J3490

== ENCOUNTER 2019-07-04 02:27 | Inpatient (IN) | payer BC ==
--- NOTE | 2019-07-04 02:57 | EDM.PDOC ---
ED HPI GENERAL MEDICAL PROBLEM - General Chief Complaint: Abdominal Pain Stated Complaint: MEDICAL TRANSFER VIA [facility] Time Seen by Provider: 07/04/19 02:52 Source of Information: Reports: Patient History Limitations: Reports: No Limitations - History of Present Illness INITIAL COMMENTS - FREE TEXT/NARRATIVE: pt has a history of a gastric bypass in 2017. She was seen at [facility] and has evisdence of free air. The thought is that she may have a perforation of the duodeum. Pt was transfered by air but she is stable at this point. She did have dilaudid in the rig and she is comfortable. Onset: Other (pain did stat today. ) Duration: Hour(s): Location: Reports: Abdomen Associated Symptoms: Reports: No Other Symptoms abd Pain Score (Numeric/FACES): 5 - Related Data Allergies Allergy/AdvReac Type Severity Reaction Status Date / Time bee venom protein (honey bee) Allergy Severe Swelling Verified 06/10/17 13:14 shrimp Allergy Severe Chest Verified 06/10/17 13:14 Tightness adhesive Allergy Rash Verified 06/10/17 13:14 amoxicillin Allergy Rash Verified 06/10/17 13:14 hornet venom Allergy Difficulty Verified 06/10/17 13:14 Breathing Penicillins Allergy Rash Verified 06/10/17 13:14 prednisone AdvReac Hallucinati Verified 06/10/17 13:14 ons trazodone AdvReac Lethargy Verified 06/10/17 13:14 Home Meds: Home Meds Cholecalciferol (Vitamin D3) [Vitamin D3] 2,000 unit PO BID 09/04/16 [History] Levothyroxine [Synthroid] 50 mcg PO DAILY 09/04/16 [History] Multivitamin with Minerals [Multiple Vitamin] 1 tab PO DAILY 09/04/16 [History] Pramipexole [Mirapex] 0.25 mg PO BEDTIME 09/04/16 [History] Triamcinolone Acetonide [Triamcinolone Acetonide 0.1% Crm] 15 gm TOP BID PRN 10/16 [History] traMADol [Ultram] 50 mg PO Q6H PRN 09/04/16 [History] Acetaminophen [Pain Relief] 650 mg PO Q6H PRN 05/21/17 [History] Calcium Carbonate/Vitamin D3 [Calcium 1,000 + D3 Caplet] 1 each PO BID 05/21/17 [History] ClonazePAM [KlonoPIN] 1 mg PO BID PRN 06/10/17 [History] Cyanocobalamin (Vitamin B-12) [Vitamin B-12] 1,000 mcg SL DAILY 06/10/17 [ History] Temazepam 15 mg PO BEDTIME 06/10/17 [History] buPROPion [Wellbutrin] 100 mg PO BID 06/10/17 [History] Past Medical History HEENT History: Reports: Allergic Rhinitis, Other (See Below) Other HEENT History: cosmetic bonding to teeth Cardiovascular History: Reports: Blood Clots/VTE/DVT, Hypertension, Other (See Below) Other Cardiovascular History: pericarditis Gastrointestinal History: Reports: GERD, Hiatal Hernia, Irritable Bowel Syndrome , PUD, Other (See Below) Other Gastrointestinal History: biliary dyskinesia Genitourinary History: Reports: Other (See Below) Other Genitourinary History: kidney failure at 18 months old 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 hypermobility Neurological History: Reports: Concussion, Migraines Psychiatric History: Reports: ADHD, Anxiety, Depression, Eating Disorders, Panic Attack, Psych Hospitalization(s), PTSD, Suicide Attempt Endocrine/Metabolic History: Reports: Hypothyroidism, Obesity/BMI 30+, Vitamin D Deficiency Hematologic History: Reports: Blood Transfusion(s), Other (See Below) Other Hematologic History: questionable blood transfusion at 18 months old Oncologic (Cancer) History: Reports: None Dermatologic History: Reports: Psoriasis - Infectious Disease History Infectious Disease History: Reports: Chicken Pox, Influenza - Past Surgical History HEENT Surgical History: Reports: Tonsillectomy GI Surgical History: Reports: Bariatric Procedure, Cholecystectomy, EGD, Hernia , Abdominal Female Surgical History: Reports: Breast Biopsy, Hysterectomy, Salpingo- Oophorectomy Oncologic Surgical History: Reports: Lumpectomy Social & Family History - Tobacco Use Smoking Status *Q: Never Smoker - Caffeine Use Caffeine Use: Reports: Coffee, Soda, Tea Caffeine Use Comment: "very rarely" - Recreational Drug Use Recreational Drug Use: Yes Recreational Drug Type: Reports: Marijuana/Hashish ED ROS GENERAL - Review of Systems Review Of Systems: See Below Constitutional: Reports: No Symptoms HEENT: Reports: No Symptoms Respiratory: Reports: No Symptoms Cardiovascular: Reports: No Symptoms Endocrine: Reports: No Symptoms GI/Abdominal: Reports: Other (pt has a acute onset of abdomanal pain and she had a cat scan at the [facility] showed a probable perforated duodenal area. ) : Reports: No Symptoms Musculoskeletal: Reports: No Symptoms ED EXAM, GI/ABD - Physical Exam Exam: See Below Text/Narrative:: Pt arrived from the [facility] after having a Cat scan which showed a probable perforated Duodenal area. Exam Limited By: No Limitations General Appearance: Alert, Anxious, Mild Distress, Other (pt has stable vital signs. ) Ears: Normal TMs Nose: Normal Inspection Throat/Mouth: Normal Inspection Head: Atraumatic Neck: Normal Inspection Respiratory/Chest: No Respiratory Distress Cardiovascular: Regular Rate, Rhythm GI/Abdominal Exam: Other ( tender in the upper abdoman. ) (Female) Exam: Deferred Rectal (Female) Exam: Deferred Back Exam: Normal Inspection Extremities: Normal Inspection Neurological: Alert, Oriented, Normal Cognition Psychiatric: Normal Affect Course - Vital Signs Last Recorded V/S: Last Vital Signs Temp 36.8 C 07/04/19 02:31 Pulse 90 07/04/19 02:31 Resp 20 07/04/19 02:31 BP 126/86 07/04/19 02:31 Pulse Ox 91 L 07/04/19 02:31 - Orders/Labs/Meds Orders: Active Orders 24 hr Category Date Time Status FRESH FROZEN PLASMA [BBK] Stat Lab 07/04/19 02:29 Ordered RED BLOOD CELLS LP [BBK] Stat Lab 07/04/19 02:29 Ordered TYPE AND SCREEN [BBK] Stat Lab 07/04/19 02:29 Ordered - Re-Assessments/Exams Free Text/Narrative Re-Assessment/Exam: 07/04/19 02:58 pt will be typed and crossed for 2 units. Departure - Departure Time of Disposition: 02:58 Disposition: Admitted As Inpatient 66 Condition: Fair Clinical Impression: Perforated duodenal ulcer, Gastric bypass status for obesity - Discharge Information Referrals: PCP,None [Primary Care Provider] - Care Plan Goals: admit to Dr Hair. Sepsis Event Note - Evaluation Sepsis Screening Result: No Definite Risk - Focused Exam Vital Signs: Vital Signs Temp Pulse Resp BP Pulse Ox 07/04/19 02:31 36.8 C 90 20 126/86 91 L Date Exam was Performed: 07/04/19 Time Exam was Performed: 02:52 - My Orders Last 24 Hours: My Active Orders 07/04/19 02:29 FRESH FROZEN PLASMA [BBK] Stat RED BLOOD CELLS LP [BBK] Stat TYPE AND SCREEN [BBK] Stat - Assessment/Plan Last 24 Hours: My Active Orders 07/04/19 02:29 FRESH FROZEN PLASMA [BBK] Stat RED BLOOD CELLS LP [BBK] Stat TYPE AND SCREEN [BBK] Stat
[2019-07-04] MEDS ORDERED: Neostigmine Methylsulfate 1 MG/ML 5 ML Syringe ONE (03:20)
[2019-07-04] MEDS ORDERED: Propofol 200 MG/20 ML SDV ONE (03:20)
[2019-07-04] MEDS ORDERED: Glycopyrrolate 0.2 MG/ML 5 ML MDV ONE (03:20)
[2019-07-04] MEDS ORDERED: Rocuronium 50 MG/5 ML Vial ONE ×2 (03:20→04:54)
[2019-07-04] MEDS ORDERED: fentaNYL 250 MCG/5 ML SDV ONE ×3 (03:20→05:19)
[2019-07-04] MEDS ORDERED: Dexamethasone 4 MG/ML SDV ONE (03:20)
[2019-07-04] MEDS ORDERED: Succinylcholine 200 MG/10 ML MDV ONE (03:20)
[2019-07-04] MEDS ORDERED: Ondansetron 4 MG/2 ML SDV ONE (03:20)
[2019-07-04] MEDS ORDERED: Bupivacaine 0.5% 50 ML MDV ONE (03:25)
[2019-07-04] MEDS ORDERED: Lidocaine 1% with EPINEPHrine 1:100,000 50 ML MDV ONE (03:25)
[2019-07-04] MEDS ORDERED: Meropenem 500 MG SDV ONE ×2 (03:25→04:20)
[2019-07-04] MEDS ORDERED: Lactated Ringers 1,000 ML ONE (04:05)
[2019-07-04] MEDS ORDERED: Sodium Chloride 0.9% 10 ML ONE (04:20)
[2019-07-04] MEDS ORDERED: Labetalol 20 MG/4 ML Syringe ONE (04:42)
[2019-07-04] MEDS ORDERED: Metoclopramide 10 MG/2 ML SDV IV PRN ×2 (06:05→06:45)
[2019-07-04] MEDS ORDERED: Ondansetron 4 MG/2 ML SDV IV PRN ×2 (06:05→06:45)
[2019-07-04] MEDS ORDERED: Labetalol 20 MG/4 ML Syringe IVPUSH PRN (06:05)
[2019-07-04] MEDS ORDERED: diphenhydrAMINE 50 MG/ML SDV IV PRN ×2 (06:05→06:45)
[2019-07-04] MEDS ORDERED: MVI, Adult with Vitamin K 10 ML, Thiamine 200 MG, Chromium/Copper/Mang/Selen/Zn 1 ML in... IV SCH ×8 (06:15→06:45)
[2019-07-04] MEDS ORDERED: Dextrose 5%-Lactated Ringers 1,000 ML IV SCH ×2 (06:15→06:45)
[2019-07-04] MEDS ORDERED: fentaNYL 25 MCG/HR Transdermal Patch TRDERM SCH ×2 (06:15→06:45)
[2019-07-04] MEDS: Labetalol 20 MG/4 ML Syringe IVPUSH PRN ×6 (06:24→14:24)
[2019-07-04] MEDS ORDERED: Naloxone 0.4 MG/ML SDV IVPUSH PRN (06:48)
[2019-07-04] MEDS: HYDROmorphone/Normal Saline 15 MG/30 ML PCA IV PRN ×2 (07:05→16:56)
[2019-07-04] MEDS ORDERED: Naloxone 0.4 MG/ML SDV IV PRN (07:24)
[2019-07-04] MEDS ORDERED: Acetaminophen 500 MG Tab PO PRN (07:27)
[2019-07-04] MEDS: hydrOXYzine HCL 100 MG/2 ML SDV IM PRN (08:58)
[2019-07-04] MEDS ORDERED: Gabapentin 250 MG/5 ML Solution ML 470 ML Bottle PO SCH (09:00)
[2019-07-04] MEDS: cefOXitin 2 GM in Premix Bag 1 BAG IV SCH ×3 (09:35→22:57)
[2019-07-04] MEDS: Gabapentin 250 MG/5 ML Solution ML 470 ML Bottle PO SCH ×3 (09:41→21:11)
[2019-07-04] MEDS: Celecoxib 200 MG Cap PO SCH ×2 (09:41→21:04)
[2019-07-04] MEDS: Acetaminophen 500 MG Tab PO SCH ×3 (11:00→19:24)
[2019-07-04] MEDS: MVI, Adult with Vitamin K 10 ML, Thiamine 200 MG, Chromium/Copper/Mang/Selen/Zn 1 ML in... IV SCH ×4 (13:34)
[2019-07-04] MEDS: Cyclobenzaprine 10 MG Tab PO PRN (16:37)
[2019-07-04] MEDS: Dextrose 5%-Lactated Ringers 1,000 ML IV SCH (20:04)
[2019-07-04] MEDS: QUEtiapine 25 MG Tab PO SCH (21:03)
[2019-07-04] MEDS: lamoTRIgine 100 MG Tab PO SCH (21:04)
[2019-07-04] MEDS: FLUVOXAMINE 200 MG PO SCH (21:04)
[2019-07-05] MEDS: Dextrose 5%-Lactated Ringers 1,000 ML IV SCH ×3 (02:45→21:34)
[2019-07-05] MEDS: Acetaminophen 500 MG Tab PO SCH ×4 (02:50→18:52)
[2019-07-05] MEDS: cefOXitin 2 GM in Premix Bag 1 BAG IV SCH ×2 (04:11→09:29)
[2019-07-05] MEDS: Labetalol 20 MG/4 ML Syringe IVPUSH PRN ×6 (04:19→09:15)
--- NOTE | 2019-07-05 09:12 | PN ---
DATE OF SERVICE: 07/05/2019 SUBJECTIVE: Dm is postop day #1. She has had elevated blood pressure. During the night, she received labetalol x3. She states usually her blood pressure has not been a problem. Vital signs otherwise have been stable. Oral intake 700. Urine output 1650. YOEL drain put out 115 mL of a light pink drainage and YOEL drain put out 50 mL of a light pink drainage. REVIEW OF SYSTEMS: Remainder of review of systems negative for any pertinent positives and negatives. OBJECTIVE: GENERAL: Dm is a 39-year-old female. VITAL SIGNS: TPR is 99.5, 77, 18, blood pressure 175/110, and checked 46 minutes later at 170/100. HEENT: Negative. NECK: Supple. HEART: Regular rate and rhythm. LUNGS: Clear. ABDOMEN: Dressings dry and intact. YOEL drains as above. EXTREMITIES: Without peripheral edema. ASSESSMENT: Exploratory laparotomy with: 1. Total gastrectomy with Juvenal-en-Y gastric jejunostomy. 2. Drainage of right subhepatic abscess for perforated duodenal ulcer, status post Juvenal-en- Y gastric bypass surgery, and right subhepatic abscess. Date of surgery: 07/03/2019. Surgeon: Rob Hair MD. PLAN: 1. Consult hospitalist for elevated blood pressure. 2. Delayed primary closure with IV local sedation, TAP block, 07/06/2019. Surgeon: Rob Hair MD. N.p.o. after midnight. 3. Decrease IV to 100 mL per hour. 4. Discontinue Zaldivar. 5. Continue good pulmonary toilet. 6. No straws. The patient has had gastrectomy and has had a Juvenal-en-Y gastric bypass surgery. 7. We will evaluate p.r.n. or in a.m. Nina Juan PA-C /[id number]
[2019-07-05] MEDS: Gabapentin 250 MG/5 ML Solution ML 470 ML Bottle PO SCH ×2 (09:28→14:31)
[2019-07-05] MEDS: Celecoxib 200 MG Cap PO SCH ×2 (09:29→20:40)
[2019-07-05] MEDS: Magnesium Sulfate/Water 2 GM in Premix Bag 1 BAG IV SCH ×3 (10:17→22:15)
[2019-07-05] MEDS: Potassium Phos in 0.9 % NaCl 15 MMOL in Premix Bag 1 BAG IV SCH ×6 (10:23→14:19)
[2019-07-05] MEDS ORDERED: Lisinopril 10 MG Tab PO SCH (13:00)
--- NOTE | 2019-07-05 13:22 | PCM.CONS ---
H&P History of Present Illness - General Date of Service: 07/05/19 Admit Problem/Dx: Admission Diagnosis/Problem Admission Diagnosis/Problem Gastrectomy Source of Information: Patient, Provider, RN Notes Reviewed History Limitations: Reports: No Limitations - History of Present Illness Initial Comments - Free Text/Narative: Ms. Braun is a 39-year-old woman who I have been asked to see by Dr. Hair for recommendations concerning management of hypertension. She was transferred here emergently on Friday and underwent surgery for a gastric perforation. Now during the postoperative period he has been noted to have elevated systolic and diastolic blood pressures. She reports that she has had a history of hypertension in the past, that resolved spontaneously after her gastric bypass surgery. She has not recently been taking medication for hypertension. She otherwise is relatively healthy and denies any significant history of cardiac or pulmonary disease. abd Pain Score (Numeric/FACES): 5 - Related Data Allergies/Adverse Reactions: Allergies Allergy/AdvReac Type Severity Reaction Status Date / Time bee venom protein (honey bee) Allergy Severe Swelling Verified 06/10/17 13:14 shrimp Allergy Severe Chest Verified 06/10/17 13:14 Tightness adhesive Allergy Rash Verified 06/10/17 13:14 amoxicillin Allergy Rash Verified 06/10/17 13:14 hornet venom Allergy Difficulty Verified 06/10/17 13:14 Breathing Penicillins Allergy Rash Verified 06/10/17 13:14 prednisone AdvReac Hallucinati Verified 06/10/17 13:14 ons trazodone AdvReac Lethargy Verified 06/10/17 13:14 Home Medications: Home Meds QUEtiapine [SEROquel] 50 mg PO BEDTIME 07/04/19 [History] fluvoxaMINE [fluvoxaMINE Maleate] 200 mg PO BEDTIME 07/04/19 [History] lamoTRIgine 200 mg PO BEDTIME 07/04/19 [History] Past Medical History HEENT History: Reports: Allergic Rhinitis, Other (See Below) Other HEENT History: cosmetic bonding to teeth Cardiovascular History: Reports: Blood Clots/VTE/DVT, Hypertension, Other (See Below) Other Cardiovascular History: pericarditis Gastrointestinal History: Reports: GERD, Hiatal Hernia, Irritable Bowel Syndrome , PUD, Other (See Below) Other Gastrointestinal History: biliary dyskinesia Genitourinary History: Reports: Other (See Below) Other Genitourinary History: kidney failure at 18 months old [employer] History: Reports: Dysfunctional Uterine Bleeding, Endometriosis, Musculoskeletal History: Reports: Back Pain, Chronic, Fracture, Other (See Below ) Other Musculoskeletal History: left foot fx. hypermobility Neurological History: Reports: Concussion, Migraines Psychiatric History: Reports: ADHD, Anxiety, Depression, Eating Disorders, Panic Attack, Psych Hospitalization(s), PTSD, Suicide Attempt Endocrine/Metabolic History: Reports: Hypothyroidism, Obesity/BMI 30+, Vitamin D Deficiency Hematologic History: Reports: Blood Transfusion(s), Other (See Below) Other Hematologic History: questionable blood transfusion at 18 months old Oncologic (Cancer) History: Reports: None Dermatologic History: Reports: Psoriasis - Infectious Disease History Infectious Disease History: Reports: Chicken Pox, Influenza - Past Surgical History HEENT Surgical History: Reports: Tonsillectomy GI Surgical History: Reports: Bariatric Procedure, Cholecystectomy, EGD, Hernia , Abdominal Female Surgical History: Reports: Breast Biopsy, Hysterectomy, Salpingo- Oophorectomy Oncologic Surgical History: Reports: Lumpectomy Social & Family History - Tobacco Use Smoking Status *Q: Never Smoker - Caffeine Use Caffeine Use: Reports: Coffee, Soda, Tea Caffeine Use Comment: "very rarely" - Recreational Drug Use Recreational Drug Use: Yes Recreational Drug Type: Reports: Marijuana/Hashish H&P Review of Systems - Review of Systems: Review Of Systems: See Below General: Reports: No Symptoms Pulmonary: Reports: No Symptoms Cardiovascular: Reports: No Symptoms Gastrointestinal: Reports: Abdominal Pain, Nausea. Denies: Difficulty Swallowing, Distension, Vomiting Genitourinary: Reports: No Symptoms Exam - Exam Exam: See Below - Vital Signs Vital Signs: Last Vital Signs Temp 99.3 F 07/05/19 13:00 Pulse 85 07/05/19 13:00 Resp 18 07/05/19 07:00 BP 154/3 H 07/05/19 13:00 Pulse Ox 93 L 07/05/19 13:00 Weight: 180 lb - Exam Quality Assessment: DVT Prophylaxis General: Alert, Oriented, Cooperative, Moderate Distress Neck: Supple, Trachea Midline Lungs: Clear to Auscultation, Normal Respiratory Effort Cardiovascular: Regular Rate, Regular Rhythm, Normal S1, Normal S2. No: Systolic Murmur, Diastolic Murmur GI/Abdominal Exam: Soft, No Organomegaly, Tender. No: Distended, Guarding, Rigid, Rebound Extremities: Non-Tender, No Pedal Edema - Patient Data Lab Results Last 24 hrs: Laboratory Results - last 24 hr 07/05/19 07/05/19 Range/Units 04:15 04:15 WBC 9.7 (4.5-11.0) K/uL RBC 4.02 (3.30-5.50) M/uL Hgb 12.0 D (12.0-15.0) g/dL Hct 37.4 (36.0-48.0) % MCV 93 (80-98) fL MCH 30 (27-31) pg MCHC 32 (32-36) % Plt Count 260 (150-400) K/uL Sodium 141 (140-148) mmol/L Potassium 3.8 (3.6-5.2) mmol/L Chloride 106 (100-108) mmol/L Carbon Dioxide 25 (21-32) mmol/L Anion Gap 10.3 (5.0-14.0) mmol/L BUN 8 (7-18) mg/dL Creatinine 0.6 (0.6-1.0) mg/dL Est Cr Clr Drug Dosing 122.42 mL/min Estimated GFR (MDRD) > 60 (>60) Glucose 127 H (74-106) mg/dL Calcium 8.0 L (8.5-10.1) mg/dL Phosphorus 2.1 L (2.5-4.9) mg/dL Magnesium 1.6 L (1.8-2.4) mg/dL Ferritin 115 (8-388) ng/ml Total Bilirubin 0.3 (0.2-1.0) mg/dL AST 38 H D (15-37) U/L ALT 43 (12-78) U/L Alkaline Phosphatase 60 (46-116) U/L Total Protein 5.5 L (6.4-8.2) g/dL Albumin 2.7 L (3.4-5.0) g/dL Globulin 2.8 (2.3-3.5) g/dL Albumin/Globulin Ratio 1.0 L (1.2-2.2) Result Diagrams: 07/05/19 04:15 07/05/19 04:15 Kemal Results Last 24 hrs: Microbiology 07/04/19 04:15 Gram Stain - Final Abdomen - Abscess Wound Culture - Preliminary Anaerobic Culture - Preliminary NO GROWTH AFTER 1 DAY Sepsis Event Note - Evaluation Sepsis Screening Result: No Definite Risk - Focused Exam Vital Signs: Vital Signs Temp Temp Pulse Resp BP BP Pulse Ox 07/05/19 13:00 99.3 F 85 154/3 H 93 L 07/05/19 09:24 81 163/101 H 95 07/05/19 09:19 85 157/106 H 94 L 07/05/19 09:14 85 158/96 H 94 L 07/05/19 09:05 90 163/103 H 94 L 07/05/19 09:03 88 159/98 H 94 L 07/05/19 09:00 74 164/102 H 94 L 07/05/19 08:55 75 169/102 H 95 07/05/19 08:50 80 176/100 H 95 07/05/19 07:46 170/100 H 07/05/19 07:19 93 L 07/05/19 07:00 99.5 F 77 18 175/110 H 93 L 07/05/19 04:40 87 163/99 H 07/05/19 04:35 85 175/108 H 07/05/19 04:30 82 185/112 H 07/05/19 04:25 92 174/106 H 07/05/19 04:11 183/105 H 07/05/19 02:46 99.1 F 91 16 176/97 H 93 L 07/05/19 01:56 92 L Date Exam was Performed: 07/05/19 Time Exam was Performed: 14:08 Consult PN Assessment/Plan Procedures: Procedures BLOOD TYPING SEROLOGIC ABO (02/15/16) BLOOD TYPING SEROLOGIC RH(D) (02/15/16) CULTURE SCREEN ONLY (06/10/17) EGD BIOPSY SINGLE/MULTIPLE (06/10/17) RBC ANTIBODY SCREEN (02/15/16) Problem List Initiated/Reviewed/Updated: Yes My Orders Last 24 Hours: My Active Orders 07/05/19 13:15 Losartan [Cozaar] 50 mg PO DAILY Plan: ASSESSMENT AND RECOMMENDATIONS HYPERTENSION-history of elevated blood pressures in the past, has not required medical therapy over the past few years. History of intolerance to JEAN PIERRE inhibitors because of cough. -Start losartan 50 mg p.o. daily Requesting Provider: EDDI Date Consult Requested: 07/05/19 Reason for Consult: Hypertension Patient History Reviewed: Yes
[2019-07-05] MEDS: Losartan 50 MG Tab PO SCH (14:21)
[2019-07-05] MEDS: cefOXitin 2 GM in Sodium Chloride 0.9% 50 ML IV SCH ×2 (15:27→21:41)
[2019-07-05] MEDS: MVI, Adult with Vitamin K 10 ML, Thiamine 200 MG, Chromium/Copper/Mang/Selen/Zn 1 ML in... IV SCH ×4 (15:29)
[2019-07-05] MEDS: lamoTRIgine 100 MG Tab PO SCH (20:41)
[2019-07-05] MEDS: FLUVOXAMINE 200 MG PO SCH (20:45)
[2019-07-05] MEDS: QUEtiapine 25 MG Tab PO SCH (20:46)
[2019-07-05] MEDS: Gabapentin 300 MG Cap PO SCH (21:38)
[2019-07-06] MEDS: Acetaminophen 500 MG Tab PO SCH ×3 (01:25→17:01)
[2019-07-06] MEDS: cefOXitin 2 GM in Sodium Chloride 0.9% 50 ML IV SCH (03:39)
[2019-07-06] MEDS: Magnesium Sulfate/Water 2 GM in Premix Bag 1 BAG IV SCH ×4 (04:28→21:59)
[2019-07-06] MEDS ORDERED: Meropenem 500 MG SDV ONE (06:33)
[2019-07-06] MEDS ORDERED: Bupivacaine 0.5% 50 ML MDV ONE (06:34)
[2019-07-06] MEDS ORDERED: Lidocaine 1% with EPINEPHrine 1:100,000 50 ML MDV ONE (06:34)
[2019-07-06] MEDS ORDERED: Propofol 200 MG/20 ML SDV ONE ×2 (07:16→07:35)
[2019-07-06] MEDS ORDERED: fentaNYL 100 MCG/2 ML SDV ONE (07:16)
[2019-07-06] MEDS ORDERED: Lactated Ringers 1,000 ML ONE (07:23)
[2019-07-06] MEDS ORDERED: Ropivacaine 40 ML, dexAMETHasone 8 MG, EPINEPHrine 0.4 MG, Sodium Chloride 0.9% 37.6 ML NERVRT SCH ×4 (07:30)
[2019-07-06] MEDS ORDERED: Cyanocobalamin (Vitamin B12) 1,000 MCG/ML SDV IM ONE (09:00)
[2019-07-06] MEDS: Celecoxib 200 MG Cap PO SCH ×2 (09:43→21:50)
[2019-07-06] MEDS: Gabapentin 300 MG Cap PO SCH ×3 (09:44→21:50)
[2019-07-06] MEDS: Cyclobenzaprine 10 MG Tab PO PRN ×2 (09:50→21:56)
[2019-07-06] MEDS: Losartan 25 MG Tab PO SCH (09:51)
[2019-07-06] MEDS: Losartan 50 MG Tab PO SCH (10:18)
[2019-07-06] MEDS: HYDROmorphone 2 MG Tab PO PRN ×3 (10:22→21:50)
[2019-07-06] MEDS: Bisacodyl 5 MG Tab PO SCH ×2 (10:23→21:50)
[2019-07-06] MEDS: Docusate Sodium 100 MG Cap PO SCH ×2 (10:23→21:50)
[2019-07-06] MEDS: Labetalol 20 MG/4 ML Syringe IVPUSH PRN ×2 (11:48→17:14)
--- NOTE | 2019-07-06 14:49 | PCM.CONSN ---
- General Info Date of Service: 07/06/19 Subjective Update: Ms. Braun has been stable since yesterday. Blood pressure control improved with addition of losartan. Functional Status: Reports: Tolerating Diet, Ambulating - Review of Systems General: Reports: Weakness, Malaise. Denies: Fever, Chills Pulmonary: Reports: No Symptoms Cardiovascular: Reports: No Symptoms Gastrointestinal: Reports: Abdominal Pain. Denies: Diarrhea, Difficulty Swallowing, Nausea, Vomiting - Patient Data Vitals - Most Recent: Last Vital Signs Temp 97.4 F 07/06/19 11:25 Pulse 85 07/06/19 11:25 Resp 18 07/06/19 11:25 BP 137/94 H 07/06/19 12:05 Pulse Ox 94 L 07/06/19 11:25 Weight - Most Recent: 180 lb I&O - Last 24 Hours: Intake & Output 07/05/19 07/06/19 07/06/19 22:59 06:59 14:59 Intake Total 1155 2171 50 Output Total 950 1850 1000 Balance 205 321 -950 Kemal Results Last 24 Hours: Microbiology 07/04/19 04:15 Gram Stain - Final Abdomen - Abscess Wound Culture - Final Klebsiella Pneumonia Ss Pneumo Viridans Streptococcus Anaerobic Culture - Preliminary NO GROWTH AFTER 2 DAYS Med Orders - Current: Current Medications Acetaminophen (Tylenol Extra Strength) 1,000 mg PO Q8H [facility] Last Admin: 07/06/19 09:45 Dose: 1,000 mg Acetaminophen (Tylenol Extra Strength) 500 mg PO Q8H PRN PRN Reason: MILD PAIN Bisacodyl (Dulcolax) 10 mg PO BID [facility] Last Admin: 07/06/19 10:23 Dose: 10 mg Celecoxib (Celebrex) 200 mg PO BID [facility] Last Admin: 07/06/19 09:43 Dose: 200 mg Cyclobenzaprine HCl (Flexeril) 10 mg PO Q8H PRN PRN Reason: Muscle Spasm Last Admin: 07/06/19 09:50 Dose: 10 mg Diphenhydramine HCl (Benadryl) 50 mg IV Q4H PRN PRN Reason: Itching Docusate Sodium (Colace) 100 mg PO BID [facility] Last Admin: 07/06/19 10:23 Dose: 100 mg Gabapentin (Neurontin) 300 mg PO TID [facility] Last Admin: 07/06/19 14:04 Dose: 300 mg Hydromorphone HCl (Dilaudid) 2 mg PO Q4H PRN PRN Reason: PAIN Last Admin: 07/06/19 10:22 Dose: 2 mg Hydroxyzine HCl (Vistaril) 100 mg IM Q4H PRN PRN Reason: Pain Last Admin: 07/04/19 08:58 Dose: 100 mg Multivitamins/Minerals 10 ml/Thiamine HCl 200 mg/ Chromium/Copper/Manganese/ Seleni/Zn 1 ml/ Dextrose/Lactated Ringer's 1,013 mls @ 175 mls/hr IV DAILY@ 1400 [facility] Last Admin: 07/05/19 15:29 Dose: 175 mls/hr Dextrose/Lactated Ringer's (Dextrose 5%-Lactated Ringers) 1,000 mls @ 100 mls/ hr IV ASDIRECTED [facility] Last Admin: 07/05/19 21:34 Dose: 100 mls/hr Magnesium Sulfate 2 gm/ Premix 50 mls @ 25 mls/hr IV Q6HR [facility] Stop: 07/08/19 05:59 Last Admin: 07/06/19 09:47 Dose: 25 mls/hr Labetalol HCl (Normodyne) 5 mg IVPUSH ASDIRECTED PRN; Protocol PRN Reason: SBP > 160 or DBP > 95 Last Admin: 07/06/19 11:48 Dose: 5 mg Lamotrigine (Lamotrigine) 200 mg PO BEDTIME [facility] Last Admin: 07/05/19 20:41 Dose: 200 mg Losartan Potassium (Cozaar) 25 mg PO DAILY [facility] Last Admin: 07/06/19 09:51 Dose: 25 mg Metoclopramide HCl (Reglan) 10 mg IV Q6H PRN PRN Reason: Nausea/Vomiting Ondansetron HCl (Zofran) 4 mg IV Q4H PRN PRN Reason: Nausea Fluvoxamine 200mg (Ptom) 0 each PO BEDTIME [facility] Last Admin: 07/05/19 20:45 Dose: 2 each Quetiapine Fumarate (Seroquel) 50 mg PO BEDTIME [facility] Last Admin: 07/05/19 20:46 Dose: 50 mg Discontinued Medications Bupivacaine HCl (Marcaine 0.5%) Confirm Administered Dose 50 ml .ROUTE .STK-MED ONE Stop: 07/04/19 03:26 Last Admin: 07/04/19 04:57 Dose: 20 ml Bupivacaine HCl (Marcaine 0.5%) Confirm Administered Dose 50 ml .ROUTE .STK-MED ONE Stop: 07/06/19 06:35 Last Admin: 07/06/19 08:04 Dose: 15 ml Ropivacaine 40 ml/Dexamethasone 8 mg/Epinephrine HCl 0.4 mg/ Sodium Chloride 37.6 ml 0 ml NERVRT ASDIRECTED [facility] Last Admin: 07/06/19 07:40 Dose: 80 syringe Cyanocobalamin (Vitamin B12) 1,000 mcg IM ONETIME ONE Stop: 07/06/19 09:01 Last Admin: 07/06/19 09:44 Dose: 1,000 mcg Dexamethasone (Dexamethasone) Confirm Administered Dose 4 mg .ROUTE .K-MED ONE Stop: 07/04/19 03:21 Fentanyl (Sublimaze) Confirm Administered Dose 250 mcg .ROUTE .STK-MED ONE Stop: 07/04/19 03:21 Fentanyl (Sublimaze) Confirm Administered Dose 250 mcg .ROUTE .ST-MED ONE Stop: 07/04/19 04:25 Fentanyl (Sublimaze) Confirm Administered Dose 250 mcg .ROUTE .STK-MED ONE Stop: 07/04/19 05:20 Fentanyl (Duragesic) 25 mcg TRDERM Q72H [facility] Last Admin: 07/04/19 21:22 Dose: Not Given Fentanyl (Duragesic) 25 mcg TRDERM Q72H [facility] Last Admin: 07/04/19 06:55 Dose: 25 mcg Fentanyl (Sublimaze) Confirm Administered Dose 100 mcg .ROUTE .STK-MED ONE Stop: 07/06/19 07:17 Gabapentin (Neurontin) 300 mg PO TID [facility] Last Admin: 07/05/19 14:31 Dose: 300 mg Glycopyrrolate (Robinul) Confirm Administered Dose 1 mg .ROUTE .STK-MED ONE Stop: 07/04/19 03:21 Hydromorphone HCl (Dilaudid [employer] 15 Mg In Ns 30 Ml) 0 mg IV ASDIRECTED PRN; Protocol PRN Reason: Pain Last Admin: 07/04/19 16:56 Dose: 15 mg Lactated Ringer's (Ringers, Lactated) Confirm Administered Dose 1,000 mls @ as directed .ROUTE .STK-MED ONE Stop: 07/04/19 04:06 Sodium Chloride (Normal Saline) Confirm Administered Dose 10 mls @ as directed .ROUTE .STK-MED ONE Stop: 07/04/19 04:21 Dextrose/Lactated Ringer's (Dextrose 5%-Lactated Ringers) 1,000 mls @ 175 mls/ hr IV ASDIRECTED [facility] Last Admin: 07/05/19 02:45 Dose: 175 mls/hr Cefoxitin Sodium 2 gm/ Premix 50 mls @ 100 mls/hr IV Q6H [facility] Stop: 07/05/19 11:00 Last Admin: 07/05/19 09:29 Dose: 100 mls/hr Potassium Phosphate 15 mmol/ (Premix) 250 mls @ 125 mls/hr IV Q2H [facility] Stop: 07/05/19 14:59 Last Admin: 07/05/19 14:19 Dose: 125 mls/hr Cefoxitin Sodium 2 gm/ Sodium (Chloride) 50 mls @ 100 mls/hr IV Q6H [facility] Stop: 07/06/19 04:29 Last Admin: 07/06/19 03:39 Dose: 100 mls/hr Lactated Ringer's (Ringers, Lactated) Confirm Administered Dose 1,000 mls @ as directed .ROUTE .STK-MED ONE Stop: 07/06/19 07:24 Labetalol HCl (Normodyne) Confirm Administered Dose 20 mg .ROUTE .STK-MED ONE Stop: 07/04/19 04:43 Lidocaine/Epinephrine (Xylocaine 1% With Epinephrine 1:100,000) Confirm Administered Dose 50 ml .ROUTE .STK-MED ONE Stop: 07/04/19 03:26 Last Admin: 07/04/19 04:58 Dose: 20 ml Lidocaine/Epinephrine (Xylocaine 1% With Epinephrine 1:100,000) Confirm Administered Dose 50 ml .ROUTE .STK-MED ONE Stop: 07/06/19 06:35 Last Admin: 07/06/19 08:04 Dose: 15 ml Lisinopril (Prinivil) 10 mg PO DAILY [facility] Losartan Potassium (Cozaar) 50 mg PO DAILY [facility] Last Admin: 07/06/19 10:18 Dose: Not Given Meropenem (Merrem) Confirm Administered Dose 500 mg .ROUTE .STK-MED ONE Stop: 07/04/19 03:26 Last Admin: 07/04/19 04:58 Dose: 1,000 mg Meropenem (Merrem) Confirm Administered Dose 500 mg .ROUTE .STK-MED ONE Stop: 07/04/19 04:21 Meropenem (Merrem) Confirm Administered Dose 500 mg .ROUTE .STK-MED ONE Stop: 07/06/19 06:34 Naloxone HCl (Narcan) 0.1 mg IV ASDIRECTED PRN PRN Reason: decreased respiratory rate Neostigmine Methylsulfate (Neostigmine) Confirm Administered Dose 5 mg .ROUTE .STK-MED ONE Stop: 07/04/19 03:21 Ondansetron HCl (Zofran) Confirm Administered Dose 4 mg .ROUTE .STK-MED ONE Stop: 07/04/19 03:21 Propofol (Diprivan 20 Ml) Confirm Administered Dose 200 mg .ROUTE .STK-MED ONE Stop: 07/04/19 03:21 Propofol (Diprivan 20 Ml) Confirm Administered Dose 200 mg .ROUTE .STK-MED ONE Stop: 07/06/19 07:17 Propofol (Diprivan 20 Ml) Confirm Administered Dose 200 mg .ROUTE .STK-MED ONE Stop: 07/06/19 07:36 Rocuronium [place] (Zemuron) Confirm Administered Dose 50 mg .ROUTE .STK-MED ONE Stop: 07/04/19 03:21 Rocuronium [place] (Zemuron) Confirm Administered Dose 50 mg .ROUTE .STK-MED ONE Stop: 07/04/19 04:55 Succinylcholine Chloride (Quelicin) Confirm Administered Dose 200 mg .ROUTE .STK -MED ONE Stop: 07/04/19 03:21 - Exam General: Alert, Oriented, Cooperative, Moderate Distress Lungs: Clear to Auscultation, Normal Respiratory Effort Cardiovascular: Regular Rate, Regular Rhythm, No Murmurs Sepsis Event Note - Evaluation Sepsis Screening Result: No Definite Risk - Focused Exam Vital Signs: Vital Signs Temp Temp Pulse Resp BP BP BP 07/06/19 12:05 137/94 H 07/06/19 12:00 147/94 H 07/06/19 11:54 154/89 H 07/06/19 11:25 97.4 F 85 18 170/103 H 180/120 H 07/06/19 10:50 98.0 F 82 16 163/102 H 07/06/19 10:00 97.6 F 85 18 07/06/19 09:51 154/87 H 07/06/19 09:25 92 16 142/72 H 07/06/19 09:10 88 18 141/73 H 07/06/19 08:55 93 18 141/84 H 07/06/19 08:40 95 18 164/91 H 07/06/19 08:10 97.3 F 85 16 130/72 07/06/19 08:05 82 16 126/70 07/06/19 08:00 94 16 125/72 07/06/19 07:55 93 16 116/66 07/06/19 07:50 97.3 F 94 14 115/63 07/06/19 07:15 07/06/19 07:00 98.1 F 85 19 158/88 H 07/06/19 03:00 96.8 F 64 16 144/85 H Pulse Ox 07/06/19 12:05 07/06/19 12:00 07/06/19 11:54 07/06/19 11:25 94 L 07/06/19 10:50 94 L 07/06/19 10:00 95 07/06/19 09:51 07/06/19 09:25 95 07/06/19 09:10 94 L 07/06/19 08:55 95 07/06/19 08:40 99 07/06/19 08:10 93 L 07/06/19 08:05 94 L 07/06/19 08:00 97 07/06/19 07:55 97 07/06/19 07:50 97 07/06/19 07:15 94 L 07/06/19 07:00 94 L 07/06/19 03:00 96 Date Exam was Performed: 07/06/19 Time Exam was Performed: 14:47 Consult PN Assessment/Plan Procedures: Procedures BLOOD TYPING SEROLOGIC ABO (02/15/16) BLOOD TYPING SEROLOGIC RH(D) (02/15/16) CULTURE SCREEN ONLY (06/10/17) EGD BIOPSY SINGLE/MULTIPLE (06/10/17) RBC ANTIBODY SCREEN (02/15/16) Problem List Initiated/Reviewed/Updated: Yes My Orders Last 24 Hours: My Active Orders 07/06/19 09:15 Losartan [Cozaar] 25 mg PO DAILY Plan: ASSESSMENT AND RECOMMENDATIONS HYPERTENSION-history of elevated blood pressures in the past, has not required medical therapy over the past few years. History of intolerance to JEAN PIERRE inhibitors because of cough. Pressure control improved with addition of losartan, plan to continue although at decreased dose. -Losartan 25 mg p.o. daily
[2019-07-06] MEDS: MVI, Adult with Vitamin K 10 ML, Thiamine 200 MG, Chromium/Copper/Mang/Selen/Zn 1 ML in... IV SCH ×4 (16:44)
[2019-07-06] MEDS: fluvoxaMINE 100 MG Tab PO SCH (21:50)
[2019-07-06] MEDS: QUEtiapine 25 MG Tab PO SCH (21:50)
[2019-07-06] MEDS: lamoTRIgine 100 MG Tab PO SCH (21:50)
[2019-07-06] MEDS: Dextrose 5%-Lactated Ringers 1,000 ML IV SCH (22:33)
[2019-07-07] MEDS: HYDROmorphone 2 MG Tab PO PRN ×5 (02:10→20:04)
[2019-07-07] MEDS: Acetaminophen 500 MG Tab PO SCH ×3 (02:10→17:51)
[2019-07-07] MEDS: Magnesium Sulfate/Water 2 GM in Premix Bag 1 BAG IV SCH ×2 (04:39→10:05)
[2019-07-07] MEDS: Dextrose 5%-Lactated Ringers 1,000 ML IV SCH (05:51)
[2019-07-07] MEDS: Cyclobenzaprine 10 MG Tab PO PRN ×3 (06:18→22:04)
[2019-07-07] MEDS: Celecoxib 200 MG Cap PO SCH ×2 (09:53→22:04)
[2019-07-07] MEDS: Docusate Sodium 100 MG Cap PO SCH ×2 (09:54→22:04)
[2019-07-07] MEDS: Losartan 25 MG Tab PO SCH (09:55)
[2019-07-07] MEDS: Bisacodyl 5 MG Tab PO SCH ×2 (09:58→22:05)
[2019-07-07] MEDS: Gabapentin 300 MG Cap PO SCH ×3 (09:59→22:05)
--- NOTE | 2019-07-07 11:24 | PN ---
DATE OF SERVICE: 07/07/2019 SUBJECTIVE: Dm states her pain has been controlled. She has not had any bowel movement. She was started on losartan for hypertension. Her blood pressures have been 149/91, 144/89, 112/74, and 139/91. She has no other concerns or questions today. OBJECTIVE: GENERAL: Dm Braun is a 39-year-old female, alert and orientated. VITAL SIGNS: TPR is 98.7, 67, 17, blood pressure 139/91. HEENT: Negative. NECK: Supple. HEART: Regular rate and rhythm. LUNGS: Clear. ABDOMEN: Aquacel dressing is on. Abdominal binder has been on. EXTREMITIES: Without peripheral edema. ASSESSMENT: Exploratory laparotomy with: 1. Total gastrectomy with Juvenal-en-Y gastric jejunostomy. 2. Drainage of right subhepatic abscess for perforated duodenal ulcer, status post Juvenal-en- Y gastric bypass surgery, and right subhepatic abscess. Date of surgery: 07/03/2019. Surgeon: Rob Hair MD. PLAN: 1. May shower. Continue good pulmonary toilet. 2. We will evaluate p.r.n. or in a.m. Nina Juan PA-C /[id number]
[2019-07-07] MEDS: Magnesium Oxide 400 MG Tab PO SCH (12:51)
--- NOTE | 2019-07-07 14:47 | PCM.CONSN ---
- General Info Date of Service: 07/07/19 Subjective Update: Ms. Braun has been stable as far as blood pressure since yesterday. Tolerating current therapy with losartan. - Review of Systems Pulmonary: Reports: No Symptoms Cardiovascular: Reports: No Symptoms Gastrointestinal: Reports: Abdominal Pain. Denies: Difficulty Swallowing, Nausea, Vomiting - Patient Data Vitals - Most Recent: Last Vital Signs Temp 98.7 F 07/07/19 11:00 Pulse 77 07/07/19 11:00 Resp 16 07/07/19 11:00 BP 150/79 H 07/07/19 11:00 Pulse Ox 96 07/07/19 11:00 Weight - Most Recent: 180 lb I&O - Last 24 Hours: Intake & Output 07/06/19 07/07/19 07/07/19 22:59 06:59 14:59 Intake Total 2897 1214 1800 Output Total 2900 1000 1400 Balance -3 214 400 Kemal Results Last 24 Hours: Microbiology 07/04/19 04:15 Gram Stain - Final Abdomen - Abscess Wound Culture - Final Klebsiella Pneumonia Ss Pneumo Viridans Streptococcus Anaerobic Culture - Final NO GROWTH AFTER 3 DAYS Med Orders - Current: Current Medications Acetaminophen (Tylenol Extra Strength) 1,000 mg PO Q8H [facility] Last Admin: 07/07/19 10:00 Dose: 1,000 mg Acetaminophen (Tylenol Extra Strength) 500 mg PO Q8H PRN PRN Reason: MILD PAIN Bisacodyl (Dulcolax) 10 mg PO BID [facility] Last Admin: 07/07/19 09:58 Dose: 10 mg Celecoxib (Celebrex) 200 mg PO BID [facility] Last Admin: 07/07/19 09:53 Dose: 200 mg Cyclobenzaprine HCl (Flexeril) 10 mg PO Q8H PRN PRN Reason: Muscle Spasm Last Admin: 07/07/19 14:14 Dose: 10 mg Docusate Sodium (Colace) 100 mg PO BID [facility] Last Admin: 07/07/19 09:54 Dose: 100 mg Fluvoxamine Maleate (Luvox) 200 mg PO BEDTIME [facility] Last Admin: 07/06/19 21:50 Dose: 200 mg Gabapentin (Neurontin) 300 mg PO TID [facility] Last Admin: 07/07/19 09:59 Dose: 300 mg Hydromorphone HCl (Dilaudid) 2 mg PO Q4H PRN PRN Reason: PAIN Last Admin: 07/07/19 10:54 Dose: 2 mg Hydroxyzine HCl (Vistaril) 100 mg IM Q4H PRN PRN Reason: Pain Last Admin: 07/04/19 08:58 Dose: 100 mg Lamotrigine (Lamotrigine) 200 mg PO BEDTIME [facility] Last Admin: 07/06/19 21:50 Dose: 200 mg Losartan Potassium (Cozaar) 25 mg PO DAILY [facility] Last Admin: 07/07/19 09:55 Dose: 25 mg Magnesium Oxide (Magnesium Oxide) 400 mg PO DAILY [facility] Last Admin: 07/07/19 12:51 Dose: 400 mg Quetiapine Fumarate (Seroquel) 50 mg PO BEDTIME [facility] Last Admin: 07/06/19 21:50 Dose: 50 mg Discontinued Medications Bupivacaine HCl (Marcaine 0.5%) Confirm Administered Dose 50 ml .ROUTE .STK-MED ONE Stop: 07/04/19 03:26 Last Admin: 07/04/19 04:57 Dose: 20 ml Bupivacaine HCl (Marcaine 0.5%) Confirm Administered Dose 50 ml .ROUTE .STK-MED ONE Stop: 07/06/19 06:35 Last Admin: 07/06/19 08:04 Dose: 15 ml Ropivacaine 40 ml/Dexamethasone 8 mg/Epinephrine HCl 0.4 mg/ Sodium Chloride 37.6 ml 0 ml NERVRT ASDIRECTED [facility] Last Admin: 07/06/19 07:40 Dose: 80 syringe Cyanocobalamin (Vitamin B12) 1,000 mcg IM ONETIME ONE Stop: 07/06/19 09:01 Last Admin: 07/06/19 09:44 Dose: 1,000 mcg Dexamethasone (Dexamethasone) Confirm Administered Dose 4 mg .ROUTE .STK-MED ONE Stop: 07/04/19 03:21 Diphenhydramine HCl (Benadryl) 50 mg IV Q4H PRN PRN Reason: Itching Fentanyl (Sublimaze) Confirm Administered Dose 250 mcg .ROUTE .STK-MED ONE Stop: 07/04/19 03:21 Fentanyl (Sublimaze) Confirm Administered Dose 250 mcg .ROUTE .STK-MED ONE Stop: 07/04/19 04:25 Fentanyl (Sublimaze) Confirm Administered Dose 250 mcg .ROUTE .STK-MED ONE Stop: 07/04/19 05:20 Fentanyl (Duragesic) 25 mcg TRDERM Q72H [facility] Last Admin: 07/04/19 21:22 Dose: Not Given Fentanyl (Duragesic) 25 mcg TRDERM Q72H [facility] Last Admin: 07/04/19 06:55 Dose: 25 mcg Fentanyl (Sublimaze) Confirm Administered Dose 100 mcg .ROUTE .STK-MED ONE Stop: 07/06/19 07:17 Gabapentin (Neurontin) 300 mg PO TID [facility] Last Admin: 07/05/19 14:31 Dose: 300 mg Glycopyrrolate (Robinul) Confirm Administered Dose 1 mg .ROUTE .STK-MED ONE Stop: 07/04/19 03:21 Hydromorphone HCl (Dilaudid Car Stower 15 Mg In Ns 30 Ml) 0 mg IV ASDIRECTED PRN; Protocol PRN Reason: Pain Last Admin: 07/04/19 16:56 Dose: 15 mg Lactated Ringer's (Ringers, Lactated) Confirm Administered Dose 1,000 mls @ as directed .ROUTE .[facility]-MED ONE Stop: 07/04/19 04:06 Sodium Chloride (Normal Saline) Confirm Administered Dose 10 mls @ as directed .ROUTE .K-MED ONE Stop: 07/04/19 04:21 Dextrose/Lactated Ringer's (Dextrose 5%-Lactated Ringers) 1,000 mls @ 175 mls/ hr IV ASDIRECTED [facility] Last Admin: 07/05/19 02:45 Dose: 175 mls/hr Multivitamins/Minerals 10 ml/Thiamine HCl 200 mg/ Chromium/Copper/Manganese/ Seleni/Zn 1 ml/ Dextrose/Lactated Ringer's 1,013 mls @ 175 mls/hr IV DAILY@ 1400 [facility] Last Admin: 07/06/19 16:44 Dose: 175 mls/hr Cefoxitin Sodium 2 gm/ Premix 50 mls @ 100 mls/hr IV Q6H [facility] Stop: 07/05/19 11:00 Last Admin: 07/05/19 09:29 Dose: 100 mls/hr Dextrose/Lactated Ringer's (Dextrose 5%-Lactated Ringers) 1,000 mls @ 100 mls/ hr IV ASDIRECTED [facility] Last Admin: 07/07/19 05:51 Dose: 100 mls/hr Potassium Phosphate 15 mmol/ (Premix) 250 mls @ 125 mls/hr IV Q2H [facility] Stop: 07/05/19 14:59 Last Admin: 07/05/19 14:19 Dose: 125 mls/hr Magnesium Sulfate 2 gm/ Premix 50 mls @ 25 mls/hr IV Q6HR [facility] Stop: 07/08/19 05:59 Last Admin: 07/07/19 10:05 Dose: 25 mls/hr Cefoxitin Sodium 2 gm/ Sodium (Chloride) 50 mls @ 100 mls/hr IV Q6H [facility] Stop: 07/06/19 04:29 Last Admin: 07/06/19 03:39 Dose: 100 mls/hr Lactated Ringer's (Ringers, Lactated) Confirm Administered Dose 1,000 mls @ as directed .ROUTE .STK-MED ONE Stop: 07/06/19 07:24 Labetalol HCl (Normodyne) Confirm Administered Dose 20 mg .ROUTE .STK-MED ONE Stop: 07/04/19 04:43 Labetalol HCl (Normodyne) 5 mg IVPUSH ASDIRECTED PRN; Protocol PRN Reason: SBP > 160 or DBP > 95 Last Admin: 07/06/19 17:14 Dose: 5 mg Lidocaine/Epinephrine (Xylocaine 1% With Epinephrine 1:100,000) Confirm Administered Dose 50 ml .ROUTE .STK-MED ONE Stop: 07/04/19 03:26 Last Admin: 07/04/19 04:58 Dose: 20 ml Lidocaine/Epinephrine (Xylocaine 1% With Epinephrine 1:100,000) Confirm Administered Dose 50 ml .ROUTE .STK-MED ONE Stop: 07/06/19 06:35 Last Admin: 07/06/19 08:04 Dose: 15 ml Lisinopril (Prinivil) 10 mg PO DAILY [facility] Losartan Potassium (Cozaar) 50 mg PO DAILY [facility] Last Admin: 07/06/19 10:18 Dose: Not Given Meropenem (Merrem) Confirm Administered Dose 500 mg .ROUTE .STK-MED ONE Stop: 07/04/19 03:26 Last Admin: 07/04/19 04:58 Dose: 1,000 mg Meropenem (Merrem) Confirm Administered Dose 500 mg .ROUTE .STK-MED ONE Stop: 07/04/19 04:21 Meropenem (Merrem) Confirm Administered Dose 500 mg .ROUTE .STK-MED ONE Stop: 07/06/19 06:34 Metoclopramide HCl (Reglan) 10 mg IV Q6H PRN PRN Reason: Nausea/Vomiting Naloxone HCl (Narcan) 0.1 mg IV ASDIRECTED PRN PRN Reason: decreased respiratory rate Neostigmine Methylsulfate (Neostigmine) Confirm Administered Dose 5 mg .ROUTE .STK-MED ONE Stop: 07/04/19 03:21 Ondansetron HCl (Zofran) Confirm Administered Dose 4 mg .ROUTE .STK-MED ONE Stop: 07/04/19 03:21 Ondansetron HCl (Zofran) 4 mg IV Q4H PRN PRN Reason: Nausea Fluvoxamine 200mg (Ptom) 0 each PO BEDTIME [facility] Last Admin: 07/05/19 20:45 Dose: 2 each Propofol (Diprivan 20 Ml) Confirm Administered Dose 200 mg .ROUTE .STK-MED ONE Stop: 07/04/19 03:21 Propofol (Diprivan 20 Ml) Confirm Administered Dose 200 mg .ROUTE .STK-MED ONE Stop: 07/06/19 07:17 Propofol (Diprivan 20 Ml) Confirm Administered Dose 200 mg .ROUTE .STK-MED ONE Stop: 07/06/19 07:36 Rocuronium Clawson (Zemuron) Confirm Administered Dose 50 mg .ROUTE .STK-MED ONE Stop: 07/04/19 03:21 Rocuronium Clawson (Zemuron) Confirm Administered Dose 50 mg .ROUTE .STK-MED ONE Stop: 07/04/19 04:55 Succinylcholine Chloride (Quelicin) Confirm Administered Dose 200 mg .ROUTE .STK -MED ONE Stop: 07/04/19 03:21 - Exam General: Alert, Oriented, Cooperative, Moderate Distress Lungs: Clear to Auscultation, Normal Respiratory Effort Cardiovascular: Regular Rate, Regular Rhythm, No Murmurs Sepsis Event Note - Evaluation Sepsis Screening Result: No Definite Risk - Focused Exam Vital Signs: Vital Signs Temp Pulse Resp BP BP BP Pulse Ox 07/07/19 11:00 98.7 F 77 16 150/79 H 96 07/07/19 09:55 139/91 H 07/07/19 07:01 98.7 F 67 17 139/91 H 96 07/07/19 02:45 97.5 F 70 16 112/74 96 Date Exam was Performed: 07/07/19 Time Exam was Performed: 14:43 Consult PN Assessment/Plan Procedures: Procedures BLOOD TYPING SEROLOGIC ABO (02/15/16) BLOOD TYPING SEROLOGIC RH(D) (02/15/16) CULTURE SCREEN ONLY (06/10/17) EGD BIOPSY SINGLE/MULTIPLE (06/10/17) RBC ANTIBODY SCREEN (02/15/16) Problem List Initiated/Reviewed/Updated: Yes Plan: ASSESSMENT AND RECOMMENDATIONS HYPERTENSION-history of elevated blood pressures in the past, has not required medical therapy over the past few years. History of intolerance to JEAN PIERRE inhibitors because of cough. Blood pressure control improved with addition of losartan, plan to continue. -Losartan 25 mg p.o. daily, continue after discharge -Monitor blood pressure after discharge several times a week -Follow-up with primary care provider concerning hypertension Blood service will sign off on the patient at this time if we can be of further assistance during this hospital stay please feel free to reconsult.
[2019-07-07] MEDS: hydrOXYzine HCL 100 MG/2 ML SDV IM PRN (16:50)
[2019-07-07] MEDS: lamoTRIgine 100 MG Tab PO SCH (22:04)
[2019-07-07] MEDS: fluvoxaMINE 100 MG Tab PO SCH (22:04)
[2019-07-07] MEDS: QUEtiapine 25 MG Tab PO SCH (22:05)
[2019-07-08] MEDS: HYDROmorphone 2 MG Tab PO PRN ×2 (01:10→05:37)
[2019-07-08] MEDS: Acetaminophen 500 MG Tab PO SCH ×2 (01:11→09:00)
[2019-07-08] MEDS: Celecoxib 200 MG Cap PO SCH (08:54)
[2019-07-08] MEDS: Bisacodyl 5 MG Tab PO SCH (08:54)
[2019-07-08] MEDS: Docusate Sodium 100 MG Cap PO SCH (08:54)
[2019-07-08] MEDS: Magnesium Oxide 400 MG Tab PO SCH (08:54)
[2019-07-08] MEDS: Losartan 25 MG Tab PO SCH (08:54)
[2019-07-08] MEDS: Gabapentin 300 MG Cap PO SCH ×2 (08:54→13:50)
--- NOTE | 2019-07-08 09:58 | DISCH ---
DISCHARGE DATE: 07/08/2019 ADMISSION DIAGNOSES: Perforation of duodenum, status post Juvenal-en-Y gastric bypass surgery, unspecified surgical malabsorption, B12 deficiency, reactive hypoglycemia, chronic back pain, migraine headaches, hypothyroidism, vitamin D deficiency, attention deficit hyperactivity disorder, anxiety, depression, panic disorder, post-traumatic stress disorder, and suicide attempt. DISCHARGE DIAGNOSES: . HISTORY: Dm Braun was transferred by air ambulance on 07/04/2019 after being seen in [place]. She had a CT scan and there was evidence of free air, which may have a perforation of the duodenum. After preoperative evaluation, discussion of possible risks and possible complications, she wished to proceed with surgical procedure. Dm had her surgery on 07/04/2019. She had no operative complications and she had a delayed primary closure on 07/06/2019. A consultation with Dr. Aman Royal was obtained due to management of hypertension, which is new for her. She was started on losartan potassium (Cozaar) 25 mg orally and she remained to be hypertensive, but showing some improvement. After delayed primary closure, diet was advanced on 07/07/2019 to a step 3 gastric bypass diet. She was ambulating. Pain was controlled using her IS. She was passing flatus, but did not have a bowel movement. She received adequate dietary instructions, and was ready to be discharged to home on 07/08/2019. PHYSICAL EXAMINATION: GENERAL: Dm Braun is a pleasant 39-year-old female, alert, orientated, color pale. VITAL SIGNS: Height is 5 feet 6.93 inches, weight 180 pounds, BMI 28.3. TPR 97.3, 72, 16, blood pressure 161/96. HEENT: Negative. NECK: Supple. HEART: Regular rate and rhythm. LUNGS: Clear. ABDOMEN: Aquacel dressing is on. Abdominal binder is on. EXTREMITIES: Without peripheral edema. DISPOSITION: Discharged to home. CONDITION: Stable and improving. FOLLOWUP: Appointment with Nina Juan PA-C, on 07/15/[address] [facility] at 10 a.m. NEW PRESCRIPTIONS: 1. Cozaar (losartan potassium) 25 mg p.o. daily #30 and 2 refills. 2. Tylenol Extra Strength 1000 mg every 8 hours, scheduled for pain. 3. Dulcolax 10 mg oral twice daily #30, stop when starts having bowel movements. 4. Celebrex 200 mg oral b.i.d. #28. 5. Flexeril 10 mg every 8 hours p.r.n. muscle spasms, #30. 6. Colace 100 mg oral twice daily, #60. 7. Dilaudid 2 mg oral every 4 hours p.r.n. pain #42. 8. Milk of Magnesia 30 mL take 1 daily 2 doses were sent home with the patient p.r.n. constipation. 9. Magnesium oxide 400 mg oral daily #100 and 4 refills. 10.She is to resume taking her home medications: a. Seroquel 50 mg at bedtime. b. Luvox (fluvoxamine) 200 mg at bedtime. c. Lamotrigine 200 mg at bedtime. DIET: Step 4 gastric bypass diet. Drink 8 to 10 glasses of water a day. ACTIVITY: No lifting greater than 10 pounds for 6 weeks. Other activity: Walk at least 6 times daily inside your home. Driving: Do not drive for 1 week and while on pain medication. Shower/bathing: May shower. DISCHARGE INSTRUCTIONS: Notify provider if any fever, increased pain, nausea, or vomiting. Keep site clean and dry. Wear abdominal binder for 6 weeks and then as tolerated. SPECIAL INSTRUCTIONS: Use incentive spirometer 10 times every hour while awake.
[2019-07-08] MEDS: Cyclobenzaprine 10 MG Tab PO PRN (10:39)
[2019-07-08 13:53] VITALS: BP 145/97; PULSE 60
--- NOTE | 2019-07-12 12:17 | OR ---
DATE OF PROCEDURE: 07/04/2019 SURGEON: Rob Hair MD PREOPERATIVE DIAGNOSIS: Perforated viscus. POSTOPERATIVE DIAGNOSES: 1. Perforated duodenal ulcer status post Juvenal-en-Y gastric bypass. 2. Right subhepatic abscess. OPERATIVE PROCEDURE: Exploratory laparotomy with: 1. Total gastrectomy with Juvenal-en-Y gastrojejunostomy (71036). 2. Drainage of right subhepatic abscess (03416). ANESTHESIA: General. INDICATION FOR PROCEDURE: This is a 39-year-old who was transferred by air during the night from [place], [place], with a perforated viscus. Per the radiology report, this was felt to most likely be a perforated duodenal ulcer. The patient is status post previous Juvenal-en- Y gastric bypass. Plan is to proceed with exploratory laparotomy and either closure or resecting of the ulcer. Potential risks of the procedure were reviewed with the patient including bleeding, infection, injury to underlying viscera, as well as the possibility of cardiopulmonary, septic, or hemorrhagic complications leading to were all discussed, and the patient wishes to proceed. DETAILS OF PROCEDURE: The patient was taken to the operating room, and after general endotracheal anesthesia was induced, a Zaldivar catheter was inserted and the abdomen then prepped and draped. An upper midline from the xiphoid to the umbilicus was made and carried down through the full thickness of the abdominal wall. Upon entering the peritoneal cavity, there was thin purulence present in the abdomen diffusely. As one pulled back from transverse colon, a well-defined abscess was noted in the right subhepatic area. This was cultured and drained. At this point, the patient was noted to have an obvious anterior perforation of the duodenal ulcer about a centimeter distal to the pylorus. At this point, the patient was quite stable, and at a young age of 39, she would likely have further problems with ulcer disease. Given this, the decision was made to proceed with a resectional procedure. This would be parallel to a total gastrectomy, leaving only a small tiny bit of gastric pouch essentially at the esophagogastric junction in place. Additionally, the duodenum was encircled just distal to the area of the perforation and divided there with a curved DEAN black load. The staple line appeared to be very satisfactory at this point. The omentum was then divided from the greater curvature with a series of DEAN michele, and as one approached the short gastric vessels, these were likewise divided with the DEAN stapler. The point where the medial fundus of the stomach laid up against the pre-existing gastrojejunostomy was noted to be densely adherent, and that was divided off. There was no putting in an anastomosis. The remaining attachments of the medial to the lesser curvature side of the stomach were then divided as well with DEAN staplers, and the specimen consisting of the total remaining stomach and proximal duodenum was delivered from the field. The anastomosis between the Juvenal limb was essentially at the esophagogastric junction. This was reconstructed at this point with a series of 3-0 Vicryl sutures in 2 layers. This appeared to satisfactorily complete that anastomosis. At this point, the abdomen had previously been irrigated with copious amounts of meropenem-containing saline solution. This was done once again, and at that point, fibrin sealant placed over the area of the duodenal stump closure as well as the reconstructed anastomosis between the Juvenal limb and the area centrally at the esophagogastric junction. Two Rob-Jones drains were then placed through stab wounds on the right side of the abdomen, one taken across the area of the duodenal closure, and the other one up into the area of the Juvenal-en-Y anastomosis. The midline fascia was then approximated with #2 Vicryl stitch and the drains affixed with some 2-0 Vicryl stitch. The incision at the skin and subcutaneous tissue level was felt to be high risk for wound infection and was therefore packed open for a planned delayed primary closure in 48 hours. The patient was taken to the recovery room in satisfactory condition. Rob Hair MD /[id number]
--- NOTE | 2019-07-12 13:35 | OR ---
DATE OF PROCEDURE: 07/06/2019 SURGEON: Rob Hair MD PREOPERATIVE DIAGNOSIS: Open abdominal incision. POSTOPERATIVE DIAGNOSIS: Open abdominal incision. PROCEDURE: Delayed primary closure of open abdominal incision. ANESTHESIA: Local plus IV sedation. INDICATION FOR PROCEDURE: The patient is status post an open laparotomy involving open GI tract and perforation. She was felt to be high risk for wound infection, so primary closure was undertaken and the wound was packed open for a planned delayed primary closure at this time. Potential risks of the procedure including bleeding and infection were reviewed and the patient wishes to proceed. DETAILS OF PROCEDURE: The patient was taken to the operating room, placed in supine position. IV sedation was administered, the pre-existing abdominal dressing was taken out, wound was inspected, and found to be clean. The wound was then prepped and draped and anesthetized with 1% lidocaine mixed with Marcaine and irrigated with meropenem-containing saline solution. Incision was closed with 3-0 Vicryl stitch deep and 4-0 Vicryl subdermal stitch and michele for the skin. Bilateral transversus abdominis plane blocks were then placed with ultrasound guidance and dressing applied. The patient was taken to the recovery room in satisfactory condition. There were no evident complications. Rob Hair MD /[id number]
== END 2019-07-08 17:39 | disposition home or self-care (01) | DRG 220 ==
LOC: JP.SDS 02:27 → JP.ED 02:27 → JP.SDS 02:55 → JP.SDSSCHI 02:55 → JP.ED 04:06 → JP.SDS 04:06 → JP.MS 06:00 → EDSTATUS 06:19
PROVIDERS: ADMIT Surgery; ATTEND Surgery
PROC: 0DT60ZZ Resection of Stomach, Open Approach (ICD-10-PCS; principal; 2019-07-04)
PROC: 0W9G0ZZ Drainage of Peritoneal Cavity, Open Approach (ICD-10-PCS; 2019-07-04)
PROC: 0WQF0ZZ Repair Abdominal Wall, Open Approach (ICD-10-PCS; 2019-07-06)
DX: K26.5 Chronic or unspecified duodenal ulcer with perforation (principal); K65.1 Peritoneal abscess; K91.2 Postsurgical malabsorption, not elsewhere classified; I10 Essential (primary) hypertension; K21.9 Gastro-esophageal reflux disease without esophagitis; G89.29 Other chronic pain; M54.9 Dorsalgia, unspecified; F32.9 Major depressive disorder, single episode, unspecified; F90.9 Attention-deficit hyperactivity disorder, unspecified type; E03.9 Hypothyroidism, unspecified; F41.0 Panic disorder [episodic paroxysmal anxiety]; E66.9 Obesity, unspecified; Z90.49 Acquired absence of other specified parts of digestive tract; Z90.710 Acquired absence of both cervix and uterus; Z88.8 Allergy status to other drugs, medicaments and biological substances; Z79.890 Hormone replacement therapy; Z79.899 Other long term (current) drug therapy
CPT/HCPCS: 36415; 51702; 80053; 82728; 83735; 84100; 85027; 86850; 86900; 86901; 86920; 86922; 87070; 87075; 87077; 87186; 87205; 88307; 88342; 94762; 99284; A9270-GY; J0171; J0330; J0694; J1100; J1170; J2185; J2405; J2704; J2710; J2795; J3010; J3410; J3411; J3420; J3475; J3490; J7050; J7120; J7121